=== PATIENT | male | born 1940 | race African-American/Black ===

== ENCOUNTER 2018-11-30 10:44 | Inpatient (IN) | payer OTHER ==
[~2018-11-30] VITALS: Ht 177.8 cm; Wt 81.6 kg
[2018-11-30] MEDS ORDERED: predniSONE 10 MG TABLET PO ONE (11:00)
[2018-11-30] MEDS ORDERED: IPRATRPIUM/ALBUTEROL 0.5/2.5MG 3 ML NEBU. NEB ONE (11:00)
--- NOTE | 2018-11-30 11:21 | RAD ---
EXAM: CHEST 1 VIEW History: Cough COMPARISON: 03/10/2015 TECHNIQUE: Single portable radiograph of the chest FINDINGS: The cardiac silhouette is unremarkable. Focus of airspace opacity right lower lobe of the lung likely pneumonia or atelectasis or neoplasm IMPRESSION: 1. Focus of airspace opacity identified in the right lower lobe lung likely pneumonia or atelectasis or neoplasm. Close interval follow-up examination is recommended to document resolution. Electronically signed by: Jordy Mcdonald MD (11/30/2018 11:18 AM) [place] [id number]
--- NOTE | 2018-11-30 12:37 | PHYS DOC ---
Past Medical History Past Medical History: CAD Past Surgical History: Other Additional Past Surgical Histo: heart cath with no stents Alcohol Use: None Drug Use: None Adult General Chief Complaint Chief Complaint: SHORTNESS OF BREATH HPI HPI Patient is a 78 year old M who presents for cough and sob. Has been sick for a few days. Endorses fevers. Endorses sputum production. Denies history of COPD but he is an everyday smoker. He does not have a primary doctor. Denies leg swelling. Review of Systems Review of Systems Constitutional: Denies fever or chills [] Eyes: Denies change in visual acuity, redness, or eye pain [] HENT: Denies nasal congestion or sore throat [] Respiratory: Denies cough or shortness of breath [] Cardiovascular: No additional information not addressed in HPI [] GI: Denies abdominal pain, nausea, vomiting, bloody stools or diarrhea [] : Denies dysuria or hematuria [] Musculoskeletal: Denies back pain or joint pain [] Integument: Denies rash or skin lesions [] Neurologic: Denies headache, focal weakness or sensory changes [] Endocrine: Denies polyuria or polydipsia [] All other systems were reviewed and found to be within normal limits, except as documented in this note. Current Medications Current Medications Current Medications Medications (Trade) Dose Ordered Sig/Robert Start Time Stop Time Status Last Admin Dose Admin Albuterol/ Ipratropium (Duoneb) 3 ml 1X ONCE 11/30/18 11:00 11/30/18 11:02 DC 11/30/18 11:10 3 ML Levofloxacin/ Dextrose 150 ml @ 100 mls/hr 1X ONCE 11/30/18 12:15 11/30/18 13:44 Prednisone (Prednisone) 50 mg 1X ONCE 11/30/18 11:00 11/30/18 11:02 DC 11/30/18 11:00 50 MG Allergies Allergies Allergies Coded Allergies Type Severity Reaction Last Updated Verified No Known Drug Allergies 03/10/15 No Physical Exam Physical Exam Constitutional: Well developed, well nourished, no acute distress, non-toxic appearance. [] HENT: Normocephalic, atraumatic, bilateral external ears normal, oropharynx moist, no oral exudates, nose normal. [] Eyes: PERRLA, EOMI, conjunctiva normal, no discharge. [] Neck: Normal range of motion, no tenderness, supple, no stridor. [] Cardiovascular:Heart rate regular rhythm, no murmur [] Lungs & Thorax: Bilateral breath sounds clear to auscultation [] Abdomen: Bowel sounds normal, soft, no tenderness, no masses, no pulsatile masses. [] Skin: Warm, dry, no erythema, no rash. [] Back: No tenderness, no CVA tenderness. [] Extremities: No tenderness, no cyanosis, no clubbing, ROM intact, no edema. [] Neurologic: Alert and oriented X 3, normal motor function, normal sensory function, no focal deficits noted. [] Psychologic: Affect normal, judgement normal, mood normal. [] Current Patient Data Vital Signs Vital Signs Date Time Temp Pulse Resp B/P (MAP) Pulse Ox O2 Delivery O2 Flow Rate FiO2 11/30/18 11:24 64 20 144/77 (99) 99 Room Air 11/30/18 11:00 98.0 98.0 EKG EKG [] Radiology/Procedures Radiology/Procedures [] Course & Med Decision Making Course & Med Decision Making Pertinent Labs and Imaging studies reviewed. (See chart for details) [] Dragon Disclaimer Dragon Disclaimer This electronic medical record was generated, in whole or in part, using a voice recognition dictation system. Departure Departure Referrals: JJ MEHTA MD (PCP) FAWN LUGO MD November 30, 2018 12:37
[2018-11-30 13:04] LABS: BASO % 1 % (0-3); EOS # 0.1 x10^3/uL (0.0-0.7); EOS % 4 % (0-3); HEMATOCRIT 44.7 % (39.0-53.0); HEMOGLOBIN 14.1 g/dL (13.0-17.5); LYMPH # 1.4 x10^3/uL (1.0-4.8); LYMPH % 33 % (24-48); MEAN CORPUSCULAR HEMOGLOBIN 23 pg (25-35); MEAN CORPUSCULAR HGB CONC 32 g/dL (31-37); MEAN CORPUSCULAR VOLUME 74 fL (79-100); MONO # 0.5 x10^3/uL (0.0-1.1); MONO % 13 % (0-9); NEUT # 2.1 x10^3uL (1.8-7.7); NEUT % 50 % (31-73); PLATELET COUNT 173 x10^3/uL (140-400); RED BLOOD COUNT 6.05 x10^6/uL (4.30-5.70); RED CELL DISTRIBUTION WIDTH 15.4 % (11.5-14.5); WHITE BLOOD COUNT 4.2 x10^3/uL (4.0-11.0)
[2018-11-30 13:08] LABS: CALCIUM 9.1 mg/dL (8.5-10.1); CREATININE 1.3 mg/dL (0.7-1.3); GFR 64.4; POTASSIUM 3.7 mmol/L (3.5-5.1)
[2018-11-30 13:14] LABS: ALBUMIN 3.1 g/dL (3.4-5.0); ALBUMIN/GLOBULIN RATIO 0.7 (1.0-1.7); TOTAL BILIRUBIN 0.4 mg/dL (0.2-1.0); TOTAL PROTEIN 7.7 g/dL (6.4-8.2)
[2018-11-30 16:30] VITALS: BP 132/84
--- NOTE | 2018-11-30 16:30 | NUR ---
The patient, JUN CASE, 78 y/o, M admitted by BRANDY MANN MD, was given written information regarding hospital policies, unit procedures and contact persons. Valuables were checked and pt only has cell phone, clothes, no dentures, no hearing aids, no glasses. pt somewhat short of breath upon admission. Sats WNL on RA. oriented to room and call light. meal tray ordered. Dr. Mann in to see pt. will monitor this patient.
[2018-11-30] MEDS ORDERED: NICOTINE POLACRILEX 2MG GUM PACKAGE of 12. BC PRN (16:45)
[2018-11-30] MEDS ORDERED: DEXTROSE 50% 25 GM / 50ML DISP.SYRIN. IV PRN (16:45)
[2018-11-30] MEDS ORDERED: NICOTINE 14MG PATCH. TD PRN (16:45)
--- NOTE | 2018-11-30 16:45 | PDOC1 ---
History and Physical Date of Admission Date of Admission DATE: 11/30/18 TIME: 16:38 Source Source: Chart review, Patient History of Present Illness History of Present Illness ninoska Rai is a 78 year old M who presents for acute dyspnea with cough and sob. 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 larkin for htn, dm2, BPH Past Medical History Cardiovascular: HTN Endocrine: Diabetes Past Surgical History Past Surgical History: No pertinent history Family History Family History: Heart Disease Social History Smoke: <1 pack per day Current Medications Current Medications Current Medications Albuterol/ Ipratropium (Duoneb) 3 ml 1X ONCE NEB Last administered on 11/30/18at 11:10; Start 11/30/18 at 11:00; Stop 11/30/18 at 11:02; Status DC Prednisone (Prednisone) 50 mg 1X ONCE PO Last administered on 11/30/18at 11:00; Start 11/30/18 at 11:00; Stop 11/30/18 at 11:02; Status DC Levofloxacin/ Dextrose 150 ml @ 100 mls/hr 1X ONCE IV Last administered on 11/30/18at 12:34; Start 11/30/18 at 12:15; Stop 11/30/18 at 13:44; Status DC Albuterol/ Ipratropium (Duoneb) 3 ml RTQID NEB ; Start 11/30/18 at 17:00 Budesonide (Pulmicort) 0.5 mg RTBID NEB ; Start 11/30/18 at 20:00 Levofloxacin (Levaquin) 750 mg DAILY06 PO ; Start 12/01/18 at 06:00 Allergies Allergies: Coded Allergies: No Known Drug Allergies (Unverified , 03/10/15) ROS General: YES: Chills, Fatigue, Malaise; No: Night Sweats, Appetite, Other PSYCHOLOGICAL ROS: No: Anxiety, Behavioral Disorder, Concentration difficultie, Decreased libido, Depression, Disorientation, Hallucinations, Hostility, Irr itablity, Memory difficulties, Mood Swings, Obsessive thoughts, Physical abuse, Sexual abuse, Sleep disturbances, Suicidal ideation, Other Eyes: No Blurry vision, No Decreased vision, No Double vision, No Dry eyes, No Excessive tearing, No Eye Pain, No Itchy Eyes, No Loss of vision, No Photophobia, No Scotomata, No Uses contacts, No Uses glasses, No Other HEENT: No: Heacaches, Visual Changes, Hearing change, Nasal congestion, Nasal discharge, Oral lesions, Sinus pain, Sore Throat, Epistaxis, Sneezing, Snoring, Tinnitus, Vertigo, Vocal changes, Other Respiratory: YES: Cough, Shortness of breath, SOB with excertion, Sputum Changes Cardiovascular: No Chest Pain, No Palpitations, No Orthopnea, No Paroxysmal Noc. Dyspnea, No Edema, No Lt Headedness, No Other Gastrointestinal: No Nausea, No Vomiting, No Abdominal Pain, No Diarrhea, No Constipation, No Melena, No Hematochezia, No Other Genitourinary: No Dysuria, No Frequency, No Incontinence, No Hematuria, No Retention, No Discharge, No Urgency, No Pain, No Flank Pain, No Other, No , No , No , No , No , No , No Musculoskeletal: No Gait Disturbance, No Joint Pain, No Joint Stiffness, No Joint Swelling, No Muscle Pain, No Muscular Weakness, No Pain In:, No Swelling In:, No Other Neurological: No Behavorial Changes, No Bowel/Bladder ControlChng, No Confusion, No Dizziness, No Gait Disturbance, No Headaches, No Impaired Coord/balance, No Memory Loss, No Numbness/Tingling, No Seizures, No Speech Problems, No Tremors, No Visual Changes, No Weakness, No Other Skin: Yes Dry Skin; No Eczema, No Hair Changes, No Lumps, No Mole Changes, No Mottling, No Nail Changes, No Pruritus, No Rash, No Skin Lesion Changes, No Other, No Acne Physical Exam General: Alert, Oriented X3, mild distress HEENT: PERRLA, EOMI Lungs: Clear to auscultation, Normal air movement Heart: S1S2, no gallops, no murmurs Abdomen: Normal bowel sounds, Soft Rectal Exam: not examined Extremities: No cyanosis, Normal pulses Skin: No rashes, No breakdown, No significant lesion Neuro: Normal speech, Normal tone, Sensation intact Psych/Mental Status: Mood NL Vitals Vitals Vital Signs Date Time Temp Pulse Resp B/P (MAP) Pulse Ox O2 Delivery O2 Flow Rate FiO2 11/30/18 15:30 64 20 151/86 (107) 95 Room Air 11/30/18 11:00 98.0 98.0 Labs Labs Laboratory Tests Test 11/30/18 12:31 White Blood Count 4.2 x10^3/uL (4.0-11.0) Red Blood Count 6.05 x10^6/uL (4.30-5.70) Hemoglobin 14.1 g/dL (13.0-17.5) Hematocrit 44.7 % (39.0-53.0) Mean Corpuscular Volume 74 fL (79-100) Mean Corpuscular Hemoglobin 23 pg (25-35) Mean Corpuscular Hemoglobin Concent 32 g/dL (31-37) Red Cell Distribution Width 15.4 % (11.5-14.5) Platelet Count 173 x10^3/uL (140-400) Neutrophils (%) (Auto) 50 % (31-73) Lymphocytes (%) (Auto) 33 % (24-48) Monocytes (%) (Auto) 13 % (0-9) Eosinophils (%) (Auto) 4 % (0-3) Basophils (%) (Auto) 1 % (0-3) Neutrophils # (Auto) 2.1 x10^3uL (1.8-7.7) Lymphocytes # (Auto) 1.4 x10^3/uL (1.0-4.8) Monocytes # (Auto) 0.5 x10^3/uL (0.0-1.1) Eosinophils # (Auto) 0.1 x10^3/uL (0.0-0.7) Basophils # (Auto) 0.0 x10^3/uL (0.0-0.2) Sodium Level 141 mmol/L (136-145) Potassium Level 3.7 mmol/L (3.5-5.1) Chloride Level 104 mmol/L (98-107) Carbon Dioxide Level 26 mmol/L (21-32) Anion Gap 11 (6-14) Blood Urea Nitrogen 11 mg/dL (8-26) Creatinine 1.3 mg/dL (0.7-1.3) Estimated GFR (Cockcroft-Gault) 64.4 BUN/Creatinine Ratio 8 (6-20) Glucose Level 91 mg/dL (70-99) Lactic Acid Level 1.3 mmol/L (0.4-2.0) Calcium Level 9.1 mg/dL (8.5-10.1) Total Bilirubin 0.4 mg/dL (0.2-1.0) Aspartate Amino Transf (AST/SGOT) 17 U/L (15-37) Alanine Aminotransferase (ALT/SGPT) 12 U/L (16-63) Alkaline Phosphatase 72 U/L (46-116) Troponin I Quantitative < 0.017 ng/mL (0.000-0.055) WR-Ekp-A-Type Natriuretic Peptide 449 pg/mL (0-449) Total Protein 7.7 g/dL (6.4-8.2) Albumin 3.1 g/dL (3.4-5.0) Albumin/Globulin Ratio 0.7 (1.0-1.7) Laboratory Tests Test 11/30/18 12:31 White Blood Count 4.2 x10^3/uL (4.0-11.0) Red Blood Count 6.05 x10^6/uL (4.30-5.70) Hemoglobin 14.1 g/dL (13.0-17.5) Hematocrit 44.7 % (39.0-53.0) Mean Corpuscular Volume 74 fL (79-100) Mean Corpuscular Hemoglobin 23 pg (25-35) Mean Corpuscular Hemoglobin Concent 32 g/dL (31-37) Red Cell Distribution Width 15.4 % (11.5-14.5) Platelet Count 173 x10^3/uL (140-400) Neutrophils (%) (Auto) 50 % (31-73) Lymphocytes (%) (Auto) 33 % (24-48) Monocytes (%) (Auto) 13 % (0-9) Eosinophils (%) (Auto) 4 % (0-3) Basophils (%) (Auto) 1 % (0-3) Neutrophils # (Auto) 2.1 x10^3uL (1.8-7.7) Lymphocytes # (Auto) 1.4 x10^3/uL (1.0-4.8) Monocytes # (Auto) 0.5 x10^3/uL (0.0-1.1) Eosinophils # (Auto) 0.1 x10^3/uL (0.0-0.7) Basophils # (Auto) 0.0 x10^3/uL (0.0-0.2) Sodium Level 141 mmol/L (136-145) Potassium Level 3.7 mmol/L (3.5-5.1) Chloride Level 104 mmol/L (98-107) Carbon Dioxide Level 26 mmol/L (21-32) Anion Gap 11 (6-14) Blood Urea Nitrogen 11 mg/dL (8-26) Creatinine 1.3 mg/dL (0.7-1.3) Estimated GFR (Cockcroft-Gault) 64.4 BUN/Creatinine Ratio 8 (6-20) Glucose Level 91 mg/dL (70-99) Lactic Acid Level 1.3 mmol/L (0.4-2.0) Calcium Level 9.1 mg/dL (8.5-10.1) Total Bilirubin 0.4 mg/dL (0.2-1.0) Aspartate Amino Transf (AST/SGOT) 17 U/L (15-37) Alanine Aminotransferase (ALT/SGPT) 12 U/L (16-63) Alkaline Phosphatase 72 U/L (46-116) Troponin I Quantitative < 0.017 ng/mL (0.000-0.055) LK-Hnb-O-Type Natriuretic Peptide 449 pg/mL (0-449) Total Protein 7.7 g/dL (6.4-8.2) Albumin 3.1 g/dL (3.4-5.0) Albumin/Globulin Ratio 0.7 (1.0-1.7) VTE Prophylaxis Ordered VTE Prophylaxis Devices: No VTE Pharmacological Prophylaxi: Yes Assessment/Plan Assessment/Plan pneumonia w. sepsis cough dyspnea hazy opacity to upper lobe, consult Pulm, may need hi res CT, will follow BPH, check post-void, should follow with uro outpatient, will refer BRANDY MANN MD November 30, 2018 16:45
[2018-11-30] MEDS: INSULIN LISPRO 300 UNITS/3 ML INSULN.PEN. SQ SCH (17:00)
[2018-11-30] MEDS: IPRATRPIUM/ALBUTEROL 0.5/2.5MG 3 ML NEBU. NEB SCH ×2 (17:00→18:08)
[2018-11-30] MEDS: amLODIPine BESYLATE 5 MG TABLET PO SCH (17:42)
[2018-11-30] MEDS: BUDESONIDE 0.5 MG/2 ML NEBU. NEB SCH (18:08)
[2018-11-30 19:00] VITALS: BP 100/62
[2018-11-30] MEDS: ENOXAPARIN 40 MG/0.4 ML SYRINGE. SQ SCH (20:28)
[2018-11-30 23:00] VITALS: BP 103/58
[2018-12-01 03:00] VITALS: BP 129/74
[2018-12-01 04:27] LABS: BASO % 0 % (0-3); EOS % 0 % (0-3); HEMATOCRIT 40.1 % (39.0-53.0); HEMOGLOBIN 12.5 g/dL (13.0-17.5); LYMPH # 1.1 x10^3/uL (1.0-4.8); LYMPH % 17 % (24-48); MEAN CORPUSCULAR HEMOGLOBIN 23 pg (25-35); MEAN CORPUSCULAR HGB CONC 31 g/dL (31-37); MEAN CORPUSCULAR VOLUME 74 fL (79-100); MONO # 0.6 x10^3/uL (0.0-1.1); MONO % 10 % (0-9); NEUT # 4.7 x10^3uL (1.8-7.7); NEUT % 73 % (31-73); PLATELET COUNT 151 x10^3/uL (140-400); RED BLOOD COUNT 5.43 x10^6/uL (4.30-5.70); RED CELL DISTRIBUTION WIDTH 15.3 % (11.5-14.5); WHITE BLOOD COUNT 6.4 x10^3/uL (4.0-11.0)
[2018-12-01 04:49] LABS: ALBUMIN 2.7 g/dL (3.4-5.0); ALBUMIN/GLOBULIN RATIO 0.7 (1.0-1.7); CREATININE 1.6 mg/dL (0.7-1.3); GFR 50.7; TOTAL BILIRUBIN 0.3 mg/dL (0.2-1.0); TOTAL PROTEIN 6.7 g/dL (6.4-8.2)
[2018-12-01 06:05] LABS: PLT ESTIMATE ADEQUATE (ADEQUATE)
[2018-12-01 06:06] LABS: MICROCYTOSIS SLIGHT
[2018-12-01 07:00] VITALS: BP 136/81
[2018-12-01] MEDS: IPRATRPIUM/ALBUTEROL 0.5/2.5MG 3 ML NEBU. NEB SCH ×4 (07:38→19:51)
[2018-12-01] MEDS: BUDESONIDE 0.5 MG/2 ML NEBU. NEB SCH ×2 (07:38→19:51)
[2018-12-01] MEDS: INSULIN LISPRO 300 UNITS/3 ML INSULN.PEN. SQ SCH ×3 (08:00→17:00)
--- NOTE | 2018-12-01 08:52 | PDOC ---
PROGRESS NOTES Chief Complaint Chief Complaint pneumonia w. sepsis cough dyspnea hazy opacity to upper lobe, consult Pulm, may need hi res CT, will follow BPH, check post-void, should follow with uro outpatient, will refer History of Present Illness History of Present Illness Mr. Calderon is a 78 year old M w/ PMHx HTN, DM2, BPH who presents for acute dyspnea with cough and sob. he has not felt well for days, fever, chills, weakness and cough - found with pneumonia on CXR, admitted for further care He still has a pretty violent cough today, not particularly short of breath. Seen by pulm. Will get CT chest. Vitals Vitals Vital Signs Date Time Temp Pulse Resp B/P (MAP) Pulse Ox O2 Delivery O2 Flow Rate FiO2 12/01/18 07:38 99 Room Air 12/01/18 07:00 98.0 61 18 136/81 (99) 98.0 Physical Exam General: Alert, Oriented X3, mild distress Lungs: Wheezing Abdomen: Normal bowel sounds, Soft Extremities: No cyanosis, Normal pulses Skin: No rashes, No breakdown, No significant lesion Labs LABS Laboratory Tests Test 11/30/18 12:31 11/30/18 16:58 12/01/18 03:20 12/01/18 03:40 White Blood Count 4.2 x10^3/uL (4.0-11.0) 6.4 x10^3/uL (4.0-11.0) Red Blood Count 6.05 x10^6/uL (4.30-5.70) 5.43 x10^6/uL (4.30-5.70) Hemoglobin 14.1 g/dL (13.0-17.5) 12.5 g/dL (13.0-17.5) Hematocrit 44.7 % (39.0-53.0) 40.1 % (39.0-53.0) Mean Corpuscular Volume 74 fL (79-100) 74 fL (79-100) Mean Corpuscular Hemoglobin 23 pg (25-35) 23 pg (25-35) Mean Corpuscular Hemoglobin Concent 32 g/dL (31-37) 31 g/dL (31-37) Red Cell Distribution Width 15.4 % (11.5-14.5) 15.3 % (11.5-14.5) Platelet Count 173 x10^3/uL (140-400) 151 x10^3/uL (140-400) Neutrophils (%) (Auto) 50 % (31-73) 73 % (31-73) Lymphocytes (%) (Auto) 33 % (24-48) 17 % (24-48) Monocytes (%) (Auto) 13 % (0-9) 10 % (0-9) Eosinophils (%) (Auto) 4 % (0-3) 0 % (0-3) Basophils (%) (Auto) 1 % (0-3) 0 % (0-3) Neutrophils # (Auto) 2.1 x10^3uL (1.8-7.7) 4.7 x10^3uL (1.8-7.7) Lymphocytes # (Auto) 1.4 x10^3/uL (1.0-4.8) 1.1 x10^3/uL (1.0-4.8) Monocytes # (Auto) 0.5 x10^3/uL (0.0-1.1) 0.6 x10^3/uL (0.0-1.1) Eosinophils # (Auto) 0.1 x10^3/uL (0.0-0.7) 0.0 x10^3/uL (0.0-0.7) Basophils # (Auto) 0.0 x10^3/uL (0.0-0.2) 0.0 x10^3/uL (0.0-0.2) Sodium Level 141 mmol/L (136-145) 139 mmol/L (136-145) Potassium Level 3.7 mmol/L (3.5-5.1) 4.0 mmol/L (3.5-5.1) Chloride Level 104 mmol/L (98-107) 104 mmol/L (98-107) Carbon Dioxide Level 26 mmol/L (21-32) 22 mmol/L (21-32) Anion Gap 11 (6-14) 13 (6-14) Blood Urea Nitrogen 11 mg/dL (8-26) 19 mg/dL (8-26) Creatinine 1.3 mg/dL (0.7-1.3) 1.6 mg/dL (0.7-1.3) Estimated GFR (Cockcroft-Gault) 64.4 50.7 BUN/Creatinine Ratio 8 (6-20) 12 (6-20) Glucose Level 91 mg/dL (70-99) 140 mg/dL (70-99) Lactic Acid Level 1.3 mmol/L (0.4-2.0) Calcium Level 9.1 mg/dL (8.5-10.1) 9.0 mg/dL (8.5-10.1) Total Bilirubin 0.4 mg/dL (0.2-1.0) 0.3 mg/dL (0.2-1.0) Aspartate Amino Transf (AST/SGOT) 17 U/L (15-37) 14 U/L (15-37) Alanine Aminotransferase (ALT/SGPT) 12 U/L (16-63) 9 U/L (16-63) Alkaline Phosphatase 72 U/L (46-116) 60 U/L (46-116) Troponin I Quantitative < 0.017 ng/mL (0.000-0.055) II-Orw-W-Type Natriuretic Peptide 449 pg/mL (0-449) Total Protein 7.7 g/dL (6.4-8.2) 6.7 g/dL (6.4-8.2) Albumin 3.1 g/dL (3.4-5.0) 2.7 g/dL (3.4-5.0) Albumin/Globulin Ratio 0.7 (1.0-1.7) 0.7 (1.0-1.7) Glucose (Fingerstick) 145 mg/dL (70-99) Iron Level 53 ug/dL (65-175) Total Iron Binding Capacity 204 ug/dL (250-450) Iron Saturation 26 % (15-34) Platelet Estimate Adequate (ADEQUATE) Large Platelets Occ Microcytosis Slight Test 12/01/18 08:39 Glucose (Fingerstick) 108 mg/dL (70-99) Assessment and Plan Assessmemt and Plan Problems Medical Problems: (1) Pneumonia Status: Acute Comment Review of Relevant I have reviewed the following items ara (where applicable) has been applied. Labs Laboratory Tests Test 11/30/18 12:31 11/30/18 16:58 12/01/18 03:20 12/01/18 03:40 White Blood Count 4.2 x10^3/uL (4.0-11.0) 6.4 x10^3/uL (4.0-11.0) Red Blood Count 6.05 x10^6/uL (4.30-5.70) 5.43 x10^6/uL (4.30-5.70) Hemoglobin 14.1 g/dL (13.0-17.5) 12.5 g/dL (13.0-17.5) Hematocrit 44.7 % (39.0-53.0) 40.1 % (39.0-53.0) Mean Corpuscular Volume 74 fL (79-100) 74 fL (79-100) Mean Corpuscular Hemoglobin 23 pg (25-35) 23 pg (25-35) Mean Corpuscular Hemoglobin Concent 32 g/dL (31-37) 31 g/dL (31-37) Red Cell Distribution Width 15.4 % (11.5-14.5) 15.3 % (11.5-14.5) Platelet Count 173 x10^3/uL (140-400) 151 x10^3/uL (140-400) Neutrophils (%) (Auto) 50 % (31-73) 73 % (31-73) Lymphocytes (%) (Auto) 33 % (24-48) 17 % (24-48) Monocytes (%) (Auto) 13 % (0-9) 10 % (0-9) Eosinophils (%) (Auto) 4 % (0-3) 0 % (0-3) Basophils (%) (Auto) 1 % (0-3) 0 % (0-3) Neutrophils # (Auto) 2.1 x10^3uL (1.8-7.7) 4.7 x10^3uL (1.8-7.7) Lymphocytes # (Auto) 1.4 x10^3/uL (1.0-4.8) 1.1 x10^3/uL (1.0-4.8) Monocytes # (Auto) 0.5 x10^3/uL (0.0-1.1) 0.6 x10^3/uL (0.0-1.1) Eosinophils # (Auto) 0.1 x10^3/uL (0.0-0.7) 0.0 x10^3/uL (0.0-0.7) Basophils # (Auto) 0.0 x10^3/uL (0.0-0.2) 0.0 x10^3/uL (0.0-0.2) Sodium Level 141 mmol/L (136-145) 139 mmol/L (136-145) Potassium Level 3.7 mmol/L (3.5-5.1) 4.0 mmol/L (3.5-5.1) Chloride Level 104 mmol/L (98-107) 104 mmol/L (98-107) Carbon Dioxide Level 26 mmol/L (21-32) 22 mmol/L (21-32) Anion Gap 11 (6-14) 13 (6-14) Blood Urea Nitrogen 11 mg/dL (8-26) 19 mg/dL (8-26) Creatinine 1.3 mg/dL (0.7-1.3) 1.6 mg/dL (0.7-1.3) Estimated GFR (Cockcroft-Gault) 64.4 50.7 BUN/Creatinine Ratio 8 (6-20) 12 (6-20) Glucose Level 91 mg/dL (70-99) 140 mg/dL (70-99) Lactic Acid Level 1.3 mmol/L (0.4-2.0) Calcium Level 9.1 mg/dL (8.5-10.1) 9.0 mg/dL (8.5-10.1) Total Bilirubin 0.4 mg/dL (0.2-1.0) 0.3 mg/dL (0.2-1.0) Aspartate Amino Transf (AST/SGOT) 17 U/L (15-37) 14 U/L (15-37) Alanine Aminotransferase (ALT/SGPT) 12 U/L (16-63) 9 U/L (16-63) Alkaline Phosphatase 72 U/L (46-116) 60 U/L (46-116) Troponin I Quantitative < 0.017 ng/mL (0.000-0.055) QT-Rug-J-Type Natriuretic Peptide 449 pg/mL (0-449) Total Protein 7.7 g/dL (6.4-8.2) 6.7 g/dL (6.4-8.2) Albumin 3.1 g/dL (3.4-5.0) 2.7 g/dL (3.4-5.0) Albumin/Globulin Ratio 0.7 (1.0-1.7) 0.7 (1.0-1.7) Glucose (Fingerstick) 145 mg/dL (70-99) Iron Level 53 ug/dL (65-175) Total Iron Binding Capacity 204 ug/dL (250-450) Iron Saturation 26 % (15-34) Platelet Estimate Adequate (ADEQUATE) Large Platelets Occ Microcytosis Slight Test 12/01/18 08:39 Glucose (Fingerstick) 108 mg/dL (70-99) Laboratory Tests Test 11/30/18 12:31 11/30/18 16:58 12/01/18 03:20 12/01/18 03:40 White Blood Count 4.2 x10^3/uL (4.0-11.0) 6.4 x10^3/uL (4.0-11.0) Red Blood Count 6.05 x10^6/uL (4.30-5.70) 5.43 x10^6/uL (4.30-5.70) Hemoglobin 14.1 g/dL (13.0-17.5) 12.5 g/dL (13.0-17.5) Hematocrit 44.7 % (39.0-53.0) 40.1 % (39.0-53.0) Mean Corpuscular Volume 74 fL (79-100) 74 fL (79-100) Mean Corpuscular Hemoglobin 23 pg (25-35) 23 pg (25-35) Mean Corpuscular Hemoglobin Concent 32 g/dL (31-37) 31 g/dL (31-37) Red Cell Distribution Width 15.4 % (11.5-14.5) 15.3 % (11.5-14.5) Platelet Count 173 x10^3/uL (140-400) 151 x10^3/uL (140-400) Neutrophils (%) (Auto) 50 % (31-73) 73 % (31-73) Lymphocytes (%) (Auto) 33 % (24-48) 17 % (24-48) Monocytes (%) (Auto) 13 % (0-9) 10 % (0-9) Eosinophils (%) (Auto) 4 % (0-3) 0 % (0-3) Basophils (%) (Auto) 1 % (0-3) 0 % (0-3) Neutrophils # (Auto) 2.1 x10^3uL (1.8-7.7) 4.7 x10^3uL (1.8-7.7) Lymphocytes # (Auto) 1.4 x10^3/uL (1.0-4.8) 1.1 x10^3/uL (1.0-4.8) Monocytes # (Auto) 0.5 x10^3/uL (0.0-1.1) 0.6 x10^3/uL (0.0-1.1) Eosinophils # (Auto) 0.1 x10^3/uL (0.0-0.7) 0.0 x10^3/uL (0.0-0.7) Basophils # (Auto) 0.0 x10^3/uL (0.0-0.2) 0.0 x10^3/uL (0.0-0.2) Sodium Level 141 mmol/L (136-145) 139 mmol/L (136-145) Potassium Level 3.7 mmol/L (3.5-5.1) 4.0 mmol/L (3.5-5.1) Chloride Level 104 mmol/L (98-107) 104 mmol/L (98-107) Carbon Dioxide Level 26 mmol/L (21-32) 22 mmol/L (21-32) Anion Gap 11 (6-14) 13 (6-14) Blood Urea Nitrogen 11 mg/dL (8-26) 19 mg/dL (8-26) Creatinine 1.3 mg/dL (0.7-1.3) 1.6 mg/dL (0.7-1.3) Estimated GFR (Cockcroft-Gault) 64.4 50.7 BUN/Creatinine Ratio 8 (6-20) 12 (6-20) Glucose Level 91 mg/dL (70-99) 140 mg/dL (70-99) Lactic Acid Level 1.3 mmol/L (0.4-2.0) Calcium Level 9.1 mg/dL (8.5-10.1) 9.0 mg/dL (8.5-10.1) Total Bilirubin 0.4 mg/dL (0.2-1.0) 0.3 mg/dL (0.2-1.0) Aspartate Amino Transf (AST/SGOT) 17 U/L (15-37) 14 U/L (15-37) Alanine Aminotransferase (ALT/SGPT) 12 U/L (16-63) 9 U/L (16-63) Alkaline Phosphatase 72 U/L (46-116) 60 U/L (46-116) Troponin I Quantitative < 0.017 ng/mL (0.000-0.055) BM-Adc-J-Type Natriuretic Peptide 449 pg/mL (0-449) Total Protein 7.7 g/dL (6.4-8.2) 6.7 g/dL (6.4-8.2) Albumin 3.1 g/dL (3.4-5.0) 2.7 g/dL (3.4-5.0) Albumin/Globulin Ratio 0.7 (1.0-1.7) 0.7 (1.0-1.7) Glucose (Fingerstick) 145 mg/dL (70-99) Iron Level 53 ug/dL (65-175) Total Iron Binding Capacity 204 ug/dL (250-450) Iron Saturation 26 % (15-34) Platelet Estimate Adequate (ADEQUATE) Large Platelets Occ Microcytosis Slight Test 12/01/18 08:39 Glucose (Fingerstick) 108 mg/dL (70-99) Medications Current Medications Albuterol/ Ipratropium (Duoneb) 3 ml 1X ONCE NEB Last administered on 11/30/18at 11:10; Start 11/30/18 at 11:00; Stop 11/30/18 at 11:02; Status DC Prednisone (Prednisone) 50 mg 1X ONCE PO Last administered on 11/30/18at 11:00; Start 11/30/18 at 11:00; Stop 11/30/18 at 11:02; Status DC Levofloxacin/ Dextrose 150 ml @ 100 mls/hr 1X ONCE IV Last administered on 11/30/18at 12:34; Start 11/30/18 at 12:15; Stop 11/30/18 at 13:44; Status DC Albuterol/ Ipratropium (Duoneb) 3 ml RTQID NEB Last administered on 12/01/18at 07:38; Start 11/30/18 at 17:00 Budesonide (Pulmicort) 0.5 mg RTBID NEB Last administered on 12/01/18at 07:38; Start 11/30/18 at 20:00 Levofloxacin (Levaquin) 750 mg DAILY06 PO Last administered on 12/01/18at 05:08; Start 12/01/18 at 06:00 Nicotine (Nicoderm Cq 14mg) 1 patch PRN DAILY PRN TD SMOKING CESSATION; Start 11/30/18 at 16:45 Nicotine Polacrilex (Nicorette Gum) 1 each PRN Q1HR PRN BC SMOKING CESSATION; Start 11/30/18 at 16:45 Insulin Human Lispro (HumaLOG) 0-7 UNITS TIDWMEALS SQ ; Start 11/30/18 at 17:00 Dextrose (Dextrose 50%-Water Syringe) 12.5 gm PRN Q15MIN PRN IV SEE COMMENTS; Start 11/30/18 at 16:45 Amlodipine Besylate (Norvasc) 2.5 mg DAILY PO Last administered on 11/30/18at 17:42; Start 11/30/18 at 17:30 Enoxaparin Sodium (Lovenox Per Pharmacy Prophylaxis Dosing) 1 each PRN DAILY PRN MC SEE COMMENTS; Start 11/30/18 at 16:45 Enoxaparin Sodium (Lovenox 40mg Syringe) 40 mg Q24H SQ Last administered on 11/30/18at 20:28; Start 11/30/18 at 21:00 Vitals/I & O Vital Sign - Last 24 Hours 11/30/18 11/30/18 11/30/18 11/30/18 11:00 11:12 11:24 12:00 Temp 98.0 98.0 Pulse 76 64 62 Resp 20 20 20 B/P (MAP) 154/89 (110) 144/77 (99) 127/73 (91) Pulse Ox 98 95 99 99 O2 Delivery Room Air Room Air Room Air Room Air 11/30/18 11/30/18 11/30/18 11/30/18 12:30 13:00 13:30 14:00 Pulse 66 62 72 66 Resp 20 20 20 20 B/P (MAP) 123/77 (92) 150/92 (111) 151/87 (108) 164/79 (107) Pulse Ox 99 95 95 95 O2 Delivery Room Air Room Air Room Air Room Air 11/30/18 11/30/18 11/30/18 11/30/18 14:30 15:00 15:30 16:30 Temp 98.2 98.2 Pulse 60 56 64 69 Resp 20 20 20 18 B/P (MAP) 146/78 (100) 151/86 (107) 151/86 (107) 132/84 (100) Pulse Ox 99 95 95 97 O2 Delivery Room Air Room Air Room Air Room Air 11/30/18 11/30/18 11/30/18 11/30/18 17:42 18:10 18:58 19:00 Temp 98.5 98.5 Pulse 69 85 Resp 20 B/P (MAP) 132/84 100/62 (75) Pulse Ox 95 96 O2 Delivery Room Air Room Air Room Air 11/30/18 11/30/18 12/01/18 12/01/18 20:00 23:00 03:00 07:00 Temp 98.8 98.8 98.0 98.8 98.8 98.0 Pulse 74 70 61 Resp 18 20 18 B/P (MAP) 103/58 (73) 129/74 (92) 136/81 (99) Pulse Ox 97 97 97 O2 Delivery Room Air Room Air Room Air Room Air 12/01/18 12/01/18 07:00 07:38 Temp 98.0 98.0 Pulse 61 Resp 18 B/P (MAP) 136/81 (99) Pulse Ox 97 99 O2 Delivery Room Air Room Air Intake and Output 11/30/18 11/30/18 12/01/18 14:59 22:59 06:59 Intake Total 150 ml 450 ml 0 ml Balance 150 ml 450 ml 0 ml BURKE PIERRE MD December 01, 2018 08:52
[2018-12-01] MEDS: amLODIPine BESYLATE 5 MG TABLET PO SCH (08:54)
--- NOTE | 2018-12-01 10:08 | NUR ---
SW following pt for anticipated dc needs. Chart reviewed and DW RN. Pt lives at home alone and no dc recommendations/SW needs noted at this time.
--- NOTE | 2018-12-01 10:17 | CONS ---
DATE OF CONSULTATION: ATTENDING PHYSICIAN: Dr. Haley. REASON FOR CONSULTATION: Dyspnea. HISTORY OF PRESENT ILLNESS: The patient is a 78-year-old male who has a history of tobacco use for 15-20 years. He no longer smokes cigarettes. He presented to the hospital with increasing cough for 1 week with some light yellow sputum production and some subjective fever. No headaches, no nausea, vomiting, no diarrhea. No chest pain. No focal weakness. The patient was seen in the Emergency Room here where a chest x-ray was performed, which was reviewed by me and shows a hazy infiltrate in the right lower lobe. He denies any weight loss. I have been asked to see him for further evaluation. PAST MEDICAL HISTORY: Significant for hypertension, diabetes. PAST SURGICAL HISTORY: No recent surgery. ALLERGIES: None. CURRENT MEDICATIONS: Reviewed as listed in the MRAD including antibiotic Levaquin. He is on bronchodilators, Pulmicort, DuoNebs and Lovenox for DVT prophylaxis. REVIEW OF SYSTEMS: A 12-point review of system obtained. Pertinent positives discussed in my history of present illness, otherwise noncontributory. All systems that were negative were reviewed as well. SOCIAL HISTORY: Smoked for about 15-20 years. FAMILY HISTORY: Noncontributory to lungs. MEDICATIONS: All reviewed as listed in the MRAD. PHYSICAL EXAMINATION: VITAL SIGNS: Reviewed. Blood pressure is stable. He is afebrile, his pulse ox is 95-96% room air. HEENT: Sclerae nonicteric. NECK: Supple. LUNGS: Diffuse expiratory wheezes. CARDIOVASCULAR: Regular rate and rhythm. ABDOMEN: Soft, nontender. EXTREMITIES: With no pitting edema. LABORATORY DATA: Reviewed. White cell count 6.4, hemoglobin 12.5 and platelets are 151. BUN and creatinine 19 and 1.6. IMPRESSION: 1. Acute exacerbation of chronic obstructive pulmonary disease, triggered by acute pneumonia, likely bacterial. 2. Abnormal chest x-ray with faint opacity in the right lower lobe, likely related to right lower lobe pneumonia. However, we will obtain noncontrast CT chest for further evaluation. 3. Moderate protein-calorie malnutrition. 4. Mild renal insufficiency. RECOMMENDATIONS: 1. The patient is diffusely wheezing. At this time, I will add IV steroids. I will continue with Pulmicort nebulizer along with DuoNebs. 2. Continue antibiotics. 3. Obtain noncontrast CT chest to rule out any small mass. 4. Lovenox for DVT prophylaxis. 5. Discussed with RN. We will follow along with you. EDNA LEOS MD DR: MICHELLE/carlos JOB#: [id number] / [id number]
[2018-12-01 10:23] LABS: HEMOGLOBIN A1C 6.3 % (4.8-5.6)
[2018-12-01 11:00] VITALS: BP 120/67
--- NOTE | 2018-12-01 13:05 | RAD ---
CT of the chest without contrast, 12/01/2018: HISTORY: Right lower lobe mass versus pneumonia Noncontrast scans were obtained as requested. There is mild calcific plaquing of the thoracic aorta without evidence of aneurysm. There are mild scattered coronary artery calcifications. The heart is not enlarged. There are calcified right hilar and mediastinal lymph nodes compatible with old granulomatous disease. The left lobe of the thyroid gland is larger than the right. The right middle lobe is atelectatic. There is narrowing of the proximal right middle lobe bronchus as best seen on coronal image 32 of series #5. There is an adjacent small area of decreased density which may represent a small amount of fluid trapped in a fissure. No definite underlying hilar mass is seen, although the margin of the right hilum is partial obscured by the adjacent atelectasis and not optimally defined on these noncontrast scans. There is a calcified granuloma anteroinferiorly in the right upper lobe. There are minimal linear opacities in the lung bases, left greater the right, compatible with scarring and/or atelectasis. No significant free pleural fluid is evident. IMPRESSION: 1. Right middle lobe atelectasis with narrowing of the proximal right middle lobe bronchus. Bronchoscopic evaluation should be considered for further evaluation. 2. 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 Minimal linear scarring and/or atelectasis in the lung bases. PQRS Compliance Statement: One or more of the following individualized dose reduction techniques were utilized for this examination: 1. Automated exposure control 2. Adjustment of the mA and/or kV according to patient size 3. Use of iterative reconstruction technique Electronically signed by: Otto Castrejon MD (12/01/2018 1:02 PM) [facility]
[2018-12-01] MEDS: methylPREDNISolone SOD SUCC PF 125 MG/2 ML VIAL. IV SCH ×2 (14:45→22:26)
[2018-12-01 15:00] VITALS: BP 134/66
[2018-12-01 19:00] VITALS: BP 134/73
[2018-12-01] MEDS: LACTOBACILLUS RHAMNOSUS GG 1 CAPSULE. PO SCH (22:26)
[2018-12-01] MEDS: ENOXAPARIN 40 MG/0.4 ML SYRINGE. SQ SCH (22:26)
[2018-12-01 23:00] VITALS: BP 123/66
[2018-12-02 03:00] VITALS: BP 138/69
[2018-12-02] MEDS: methylPREDNISolone SOD SUCC PF 125 MG/2 ML VIAL. IV SCH ×3 (05:48→21:48)
[2018-12-02 07:00] VITALS: BP 137/71
[2018-12-02] MEDS: BUDESONIDE 0.5 MG/2 ML NEBU. NEB SCH ×2 (07:26→20:04)
[2018-12-02] MEDS: IPRATRPIUM/ALBUTEROL 0.5/2.5MG 3 ML NEBU. NEB SCH ×4 (07:26→20:04)
[2018-12-02] MEDS: INSULIN LISPRO 300 UNITS/3 ML INSULN.PEN. SQ SCH ×3 (08:00→17:04)
[2018-12-02] MEDS: amLODIPine BESYLATE 5 MG TABLET PO SCH (09:24)
[2018-12-02] MEDS: LACTOBACILLUS RHAMNOSUS GG 1 CAPSULE. PO SCH ×2 (09:24→21:21)
[2018-12-02 11:08] VITALS: BP 121/71
--- NOTE | 2018-12-02 12:35 | PDOC ---
PULMONARY PROGRESS NOTES Subjective no soa Vitals Vital Signs Date Time Temp Pulse Resp B/P (MAP) Pulse Ox O2 Delivery O2 Flow Rate FiO2 12/02/18 11:24 Room Air 12/02/18 11:08 98.3 78 14 121/71 (88) 94 98.3 General: Alert, No acute distress Lungs: Clear Cardiovascular: S1 Abdomen: Soft Neuro Exam: Alert Extremities: No Edema Skin: Warm Labs Laboratory Tests Test 11/30/18 16:58 12/01/18 03:20 12/01/18 03:40 12/01/18 08:39 Glucose (Fingerstick) 145 mg/dL (70-99) 108 mg/dL (70-99) Sodium Level 139 mmol/L (136-145) Potassium Level 4.0 mmol/L (3.5-5.1) Chloride Level 104 mmol/L (98-107) Carbon Dioxide Level 22 mmol/L (21-32) Anion Gap 13 (6-14) Blood Urea Nitrogen 19 mg/dL (8-26) Creatinine 1.6 mg/dL (0.7-1.3) Estimated GFR (Cockcroft-Gault) 50.7 BUN/Creatinine Ratio 12 (6-20) Glucose Level 140 mg/dL (70-99) Hemoglobin A1c 6.3 % (4.8-5.6) Calcium Level 9.0 mg/dL (8.5-10.1) Iron Level 53 ug/dL (65-175) Total Iron Binding Capacity 204 ug/dL (250-450) Iron Saturation 26 % (15-34) Total Bilirubin 0.3 mg/dL (0.2-1.0) Aspartate Amino Transf (AST/SGOT) 14 U/L (15-37) Alanine Aminotransferase (ALT/SGPT) 9 U/L (16-63) Alkaline Phosphatase 60 U/L (46-116) Total Protein 6.7 g/dL (6.4-8.2) Albumin 2.7 g/dL (3.4-5.0) Albumin/Globulin Ratio 0.7 (1.0-1.7) White Blood Count 6.4 x10^3/uL (4.0-11.0) Red Blood Count 5.43 x10^6/uL (4.30-5.70) Hemoglobin 12.5 g/dL (13.0-17.5) Hematocrit 40.1 % (39.0-53.0) Mean Corpuscular Volume 74 fL (79-100) Mean Corpuscular Hemoglobin 23 pg (25-35) Mean Corpuscular Hemoglobin Concent 31 g/dL (31-37) Red Cell Distribution Width 15.3 % (11.5-14.5) Platelet Count 151 x10^3/uL (140-400) Neutrophils (%) (Auto) 73 % (31-73) Lymphocytes (%) (Auto) 17 % (24-48) Monocytes (%) (Auto) 10 % (0-9) Eosinophils (%) (Auto) 0 % (0-3) Basophils (%) (Auto) 0 % (0-3) Neutrophils # (Auto) 4.7 x10^3uL (1.8-7.7) Lymphocytes # (Auto) 1.1 x10^3/uL (1.0-4.8) Monocytes # (Auto) 0.6 x10^3/uL (0.0-1.1) Eosinophils # (Auto) 0.0 x10^3/uL (0.0-0.7) Basophils # (Auto) 0.0 x10^3/uL (0.0-0.2) Platelet Estimate Adequate (ADEQUATE) Large Platelets Occ Microcytosis Slight Test 12/01/18 11:42 12/01/18 16:44 12/01/18 21:06 12/02/18 07:45 Glucose (Fingerstick) 101 mg/dL (70-99) 148 mg/dL (70-99) 242 mg/dL (70-99) 149 mg/dL (70-99) Test 12/02/18 11:46 Glucose (Fingerstick) 271 mg/dL (70-99) Laboratory Tests Test 12/01/18 16:44 12/01/18 21:06 12/02/18 07:45 12/02/18 11:46 Glucose (Fingerstick) 148 mg/dL (70-99) 242 mg/dL (70-99) 149 mg/dL (70-99) 271 mg/dL (70-99) Comments CT CHEST 1. Right middle lobe atelectasis with narrowing of the proximal right middle lobe bronchus. Bronchoscopic evaluation should be considered for further evaluation. 2. 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 Minimal linear scarring and/or atelectasis in the lung bases. Impression . 1. Acute exacerbation of chronic obstructive pulmonary disease, triggered by acute pneumonia, 2. Abnormal chest x-ray with faint opacity in the right lower lobe, likely related to right lower lobe pneumonia. ABNORMAL CT CHEST WITH Right middle lobe atelectasis with narrowing of the proximal right middle lobe bronchus. 3. Moderate protein-calorie malnutrition. 4. Mild renal insufficiency. Plan . 1. wheezing Improved. IV steroids. Pulmicort nebulizer along with DuoNebs. 2. Continue antibiotics. 3. Bronch in am. Pt agrees 4. hold Lovenox for DVT prophylaxis. 5. Discussed with RN. EDNA LEOS MD December 02, 2018 12:35
--- NOTE | 2018-12-02 13:30 | NUR ---
Patient verb. understanding POC: NPO after MN, diagnostic bronch. tomorrow. Consents witnessed. Sri in Outpatient states scheduled for 11:30, patient verb. undersanding.
[2018-12-02 15:00] VITALS: BP 118/52
--- NOTE | 2018-12-02 15:49 | PDOC ---
PROGRESS NOTES Chief Complaint Chief Complaint pneumonia w. sepsis cough dyspnea hazy opacity to upper lobe, consult Pulm, bronch in am Moderate protein-calorie malnutrition. Mild renal insufficiency. BPH, check post-void, should follow with uro outpatient, will refer History of Present Illness History of Present Illness Mr. Calderon is a 78 year old M w/ PMHx HTN, DM2, BPH who presents for acute dyspnea with cough and sob. he has not felt well for days, fever, chills, weakness and cough - found with pneumonia on CXR, admitted for further care He still has a pretty violent cough today, not particularly short of breath. Seen by pulm. CT chest concerning for some possible mucous plugging, planning for bronchoscopy in AM. Urinary retention still an issue Vitals Vitals Vital Signs Date Time Temp Pulse Resp B/P (MAP) Pulse Ox O2 Delivery O2 Flow Rate FiO2 12/02/18 15:42 Room Air 12/02/18 11:08 98.3 78 14 121/71 (88) 94 98.3 Physical Exam General: Alert, Oriented X3, mild distress Lungs: Clear Abdomen: Normal bowel sounds, Soft Extremities: No cyanosis, Normal pulses Skin: No rashes, No breakdown, No significant lesion Labs LABS Laboratory Tests Test 12/01/18 16:44 12/01/18 21:06 12/02/18 07:45 12/02/18 11:46 Glucose (Fingerstick) 148 mg/dL (70-99) 242 mg/dL (70-99) 149 mg/dL (70-99) 271 mg/dL (70-99) Assessment and Plan Assessmemt and Plan Problems Medical Problems: (1) Pneumonia Status: Acute Comment Review of Relevant I have reviewed the following items ara (where applicable) has been applied. Labs Laboratory Tests Test 11/30/18 16:58 12/01/18 03:20 12/01/18 03:40 12/01/18 08:39 Glucose (Fingerstick) 145 mg/dL (70-99) 108 mg/dL (70-99) Sodium Level 139 mmol/L (136-145) Potassium Level 4.0 mmol/L (3.5-5.1) Chloride Level 104 mmol/L (98-107) Carbon Dioxide Level 22 mmol/L (21-32) Anion Gap 13 (6-14) Blood Urea Nitrogen 19 mg/dL (8-26) Creatinine 1.6 mg/dL (0.7-1.3) Estimated GFR (Cockcroft-Gault) 50.7 BUN/Creatinine Ratio 12 (6-20) Glucose Level 140 mg/dL (70-99) Hemoglobin A1c 6.3 % (4.8-5.6) Calcium Level 9.0 mg/dL (8.5-10.1) Iron Level 53 ug/dL (65-175) Total Iron Binding Capacity 204 ug/dL (250-450) Iron Saturation 26 % (15-34) Total Bilirubin 0.3 mg/dL (0.2-1.0) Aspartate Amino Transf (AST/SGOT) 14 U/L (15-37) Alanine Aminotransferase (ALT/SGPT) 9 U/L (16-63) Alkaline Phosphatase 60 U/L (46-116) Total Protein 6.7 g/dL (6.4-8.2) Albumin 2.7 g/dL (3.4-5.0) Albumin/Globulin Ratio 0.7 (1.0-1.7) White Blood Count 6.4 x10^3/uL (4.0-11.0) Red Blood Count 5.43 x10^6/uL (4.30-5.70) Hemoglobin 12.5 g/dL (13.0-17.5) Hematocrit 40.1 % (39.0-53.0) Mean Corpuscular Volume 74 fL (79-100) Mean Corpuscular Hemoglobin 23 pg (25-35) Mean Corpuscular Hemoglobin Concent 31 g/dL (31-37) Red Cell Distribution Width 15.3 % (11.5-14.5) Platelet Count 151 x10^3/uL (140-400) Neutrophils (%) (Auto) 73 % (31-73) Lymphocytes (%) (Auto) 17 % (24-48) Monocytes (%) (Auto) 10 % (0-9) Eosinophils (%) (Auto) 0 % (0-3) Basophils (%) (Auto) 0 % (0-3) Neutrophils # (Auto) 4.7 x10^3uL (1.8-7.7) Lymphocytes # (Auto) 1.1 x10^3/uL (1.0-4.8) Monocytes # (Auto) 0.6 x10^3/uL (0.0-1.1) Eosinophils # (Auto) 0.0 x10^3/uL (0.0-0.7) Basophils # (Auto) 0.0 x10^3/uL (0.0-0.2) Platelet Estimate Adequate (ADEQUATE) Large Platelets Occ Microcytosis Slight Test 12/01/18 11:42 12/01/18 16:44 12/01/18 21:06 12/02/18 07:45 Glucose (Fingerstick) 101 mg/dL (70-99) 148 mg/dL (70-99) 242 mg/dL (70-99) 149 mg/dL (70-99) Test 12/02/18 11:46 Glucose (Fingerstick) 271 mg/dL (70-99) Laboratory Tests Test 12/01/18 16:44 12/01/18 21:06 12/02/18 07:45 12/02/18 11:46 Glucose (Fingerstick) 148 mg/dL (70-99) 242 mg/dL (70-99) 149 mg/dL (70-99) 271 mg/dL (70-99) Microbiology 11/30/18 Blood Culture - Preliminary, Resulted NO GROWTH AFTER 2 DAYS Medications Current Medications Albuterol/ Ipratropium (Duoneb) 3 ml 1X ONCE NEB Last administered on 11/30/18at 11:10; Start 11/30/18 at 11:00; Stop 11/30/18 at 11:02; Status DC Prednisone (Prednisone) 50 mg 1X ONCE PO Last administered on 11/30/18at 11:00; Start 11/30/18 at 11:00; Stop 11/30/18 at 11:02; Status DC Levofloxacin/ Dextrose 150 ml @ 100 mls/hr 1X ONCE IV Last administered on 11/30/18at 12:34; Start 11/30/18 at 12:15; Stop 11/30/18 at 13:44; Status DC Albuterol/ Ipratropium (Duoneb) 3 ml RTQID NEB Last administered on 12/02/18at 15:42; Start 11/30/18 at 17:00 Budesonide (Pulmicort) 0.5 mg RTBID NEB Last administered on 12/02/18at 07:26; Start 11/30/18 at 20:00 Levofloxacin (Levaquin) 750 mg DAILY06 PO Last administered on 12/01/18at 05:08; Start 12/01/18 at 06:00; Stop 12/01/18 at 13:35; Status DC Nicotine (Nicoderm Cq 14mg) 1 patch PRN DAILY PRN TD SMOKING CESSATION; Start 11/30/18 at 16:45 Nicotine Polacrilex (Nicorette Gum) 1 each PRN Q1HR PRN BC SMOKING CESSATION; Start 11/30/18 at 16:45 Insulin Human Lispro (HumaLOG) 0-7 UNITS TIDWMEALS SQ Last administered on 12/02/18at 11:54; Start 11/30/18 at 17:00 Dextrose (Dextrose 50%-Water Syringe) 12.5 gm PRN Q15MIN PRN IV SEE COMMENTS; Start 11/30/18 at 16:45 Amlodipine Besylate (Norvasc) 2.5 mg DAILY PO Last administered on 12/02/18at 09:24; Start 11/30/18 at 17:30 Enoxaparin Sodium (Lovenox Per Pharmacy Prophylaxis Dosing) 1 each PRN DAILY PRN MC SEE COMMENTS; Start 11/30/18 at 16:45; Stop 12/02/18 at 12:37; Status DC Enoxaparin Sodium (Lovenox 40mg Syringe) 40 mg Q24H SQ Last administered on 12/01/18at 22:26; Start 11/30/18 at 21:00; Stop 12/02/18 at 12:37; Status DC Methylprednisolone Sodium Succinate (SOLU-Medrol 125MG VIAL) 60 mg Q8HRS IV Last administered on 12/02/18at 13:23; Start 12/01/18 at 14:00 Levofloxacin (Levaquin) 750 mg Q48H PO ; Start 12/03/18 at 06:00 Lactobacillus Rhamnosus (Culturelle) 1 cap BID PO Last administered on 12/02/18at 09:24; Start 12/01/18 at 21:00 Fentanyl Citrate (Fentanyl 2ml Vial) 25 mcg PRN Q5MIN PRN IV MILD PAIN 1-3; Start 12/03/18 at 07:00; Stop 12/03/18 at 21:00 Fentanyl Citrate (Fentanyl 2ml Vial) 50 mcg PRN Q5MIN PRN IV MODERATE TO SEVERE PAIN; Start 12/03/18 at 07:00; Stop 12/03/18 at 21:00 Morphine Sulfate (Morphine Sulfate) 1 mg PRN Q10MIN PRN IV SEVERE PAIN 7-10; Start 12/03/18 at 07:00; Stop 12/03/18 at 21:00 Ringer's Solution 1,000 ml @ 30 mls/hr Q24H IV ; Start 12/03/18 at 07:00; Stop 12/03/18 at 18:59 Hydromorphone HCl (Dilaudid) 0.5 mg PRN Q10MIN PRN IV SEV PAIN, Second choice; Start 12/03/18 at 07:00; Stop 12/03/18 at 21:00 Prochlorperazine Edisylate (Compazine) 5 mg PACU PRN PRN IV NAUSEA, MRX1; Start 12/03/18 at 07:00; Stop 12/03/18 at 21:00 Vitals/I & O Vital Sign - Last 24 Hours 12/01/18 12/01/18 12/01/18 12/01/18 19:00 19:48 20:00 23:00 Temp 98.6 98.6 98.6 98.6 Pulse 70 72 Resp 20 20 B/P (MAP) 134/73 (93) 123/66 (85) Pulse Ox 94 94 O2 Delivery Room Air Room Air Room Air Room Air 12/02/18 12/02/18 12/02/18 12/02/18 03:00 07:00 07:26 08:00 Temp 98.1 97.6 98.1 97.6 Pulse 63 76 Resp 20 14 B/P (MAP) 138/69 (92) 137/71 (93) Pulse Ox 95 95 97 O2 Delivery Room Air Room Air Room Air Room Air 12/02/18 12/02/18 12/02/18 12/02/18 09:24 11:08 11:24 15:42 Temp 98.3 98.3 Pulse 76 78 Resp 14 B/P (MAP) 137/71 121/71 (88) Pulse Ox 94 O2 Delivery Room Air Room Air Room Air Intake and Output 12/01/18 12/01/18 12/02/18 14:59 22:59 06:59 Intake Total 200 ml 200 ml Output Total 250 ml 400 ml Balance -50 ml -200 ml BURKE PIERRE MD December 02, 2018 15:49
[2018-12-02 19:00] VITALS: BP 122/61
[2018-12-02] MEDS: TAMSULOSIN 0.4 MG CAP.ER.24H. PO SCH (21:21)
[2018-12-02 22:54] VITALS: BP 142/78
[2018-12-03 03:00] VITALS: BP 116/69
[2018-12-03 05:09] LABS: BASO % 0 % (0-3); EOS % 0 % (0-3); HEMATOCRIT 38.8 % (39.0-53.0); LYMPH # 0.8 x10^3/uL (1.0-4.8); LYMPH % 8 % (24-48); MEAN CORPUSCULAR HEMOGLOBIN 23 pg (25-35); MEAN CORPUSCULAR HGB CONC 31 g/dL (31-37); MEAN CORPUSCULAR VOLUME 73 fL (79-100); MONO # 0.3 x10^3/uL (0.0-1.1); MONO % 3 % (0-9); NEUT # 8.6 x10^3uL (1.8-7.7); NEUT % 89 % (31-73); PLATELET COUNT 155 x10^3/uL (140-400); RED BLOOD COUNT 5.31 x10^6/uL (4.30-5.70); RED CELL DISTRIBUTION WIDTH 15.3 % (11.5-14.5); WHITE BLOOD COUNT 9.7 x10^3/uL (4.0-11.0)
[2018-12-03] MEDS: methylPREDNISolone SOD SUCC PF 125 MG/2 ML VIAL. IV SCH ×3 (05:46→20:25)
[2018-12-03 05:58] LABS: CALCIUM 8.7 mg/dL (8.5-10.1); CREATININE 1.4 mg/dL (0.7-1.3); GFR 59.2; POTASSIUM 4.3 mmol/L (3.5-5.1)
[2018-12-03 06:32] VITALS: BP 113/66
[2018-12-03] MEDS ORDERED: PROCHLORPERAZINE 10 MG/2 ML VIAL. IV PRN (07:00)
[2018-12-03] MEDS ORDERED: MORPHINE SULFATE 2 MG/ML VIAL. IV PRN (07:00)
[2018-12-03] MEDS ORDERED: fentaNYL PF VIAL 100 MCG/2 ML VIAL IV PRN ×4 (07:00→11:00)
[2018-12-03] MEDS ORDERED: HYDROmorphone 2 MG/ML VIAL IV PRN (07:00)
[2018-12-03] MEDS ORDERED: IV RINGERS,LACTATED 1000ML 1,000 ML IV SCH ×2 (07:00→10:48)
[2018-12-03] MEDS: IPRATRPIUM/ALBUTEROL 0.5/2.5MG 3 ML NEBU. NEB SCH ×4 (07:03→19:58)
[2018-12-03] MEDS: BUDESONIDE 0.5 MG/2 ML NEBU. NEB SCH ×2 (07:03→19:58)
[2018-12-03 07:25] LABS: % BANDS 3 % (0-9); % LYMPHS 6 % (24-48); % MONOS 2 % (0-10); % SEGS 89 % (35-66); HYPOCHROMIA SLIGHT; PLT ESTIMATE ADEQUATE (ADEQUATE)
[2018-12-03 07:26] LABS: ANISOCYTOSIS SLIGHT; MICROCYTOSIS SLIGHT
[2018-12-03] MEDS: INSULIN LISPRO 300 UNITS/3 ML INSULN.PEN. SQ SCH ×3 (08:00→20:17)
[2018-12-03] MEDS ORDERED: EPINEPHrine 1 MG/ML VIAL INJ PRN (08:30)
[2018-12-03] MEDS ORDERED: LIDOCAINE 2% VISCOUS 100 ML BOTTLE. MM PRN (08:30)
[2018-12-03] MEDS ORDERED: LIDOCAINE 1% Multi-Dose 20 ML VIAL. INJ PRN (08:30)
[2018-12-03] MEDS ORDERED: LIDOCAINE 4% TOPICAL 50 ML SOLUTION. MM PRN (08:30)
[2018-12-03] MEDS: LACTOBACILLUS RHAMNOSUS GG 1 CAPSULE. PO SCH ×2 (09:00→20:24)
--- NOTE | 2018-12-03 09:10 | PDOC ---
PROGRESS NOTES Chief Complaint Chief Complaint pneumonia w. sepsis cough dyspnea hazy opacity to upper lobe, consult Pulm, bronch in am Moderate protein-calorie malnutrition. Mild renal insufficiency. BPH, check post-void, should follow with uro outpatient, will refer History of Present Illness History of Present Illness Mr. Calderon is a 78 year old M w/ PMHx HTN, DM2, BPH who presents for acute dyspnea with cough and sob. he has not felt well for days, fever, chills, weakness and cough - found with pneumonia on CXR, admitted for further care He still has a pretty violent cough today, not particularly short of breath. Seen by pulm. CT chest concerning for some possible mucous plugging, bronchoscopy this AM. Urinary retention still an issue Vitals Vitals Vital Signs Date Time Temp Pulse Resp B/P (MAP) Pulse Ox O2 Delivery O2 Flow Rate FiO2 12/03/18 07:04 91 Room Air 12/03/18 06:32 98.0 71 20 113/66 (82) 98.0 Physical Exam General: Alert, Oriented X3, mild distress Lungs: Clear Abdomen: Normal bowel sounds, Soft Extremities: No cyanosis, Normal pulses Skin: No rashes, No breakdown, No significant lesion Labs LABS Laboratory Tests Test 12/02/18 11:46 12/02/18 17:03 12/02/18 19:58 12/03/18 04:11 Glucose (Fingerstick) 271 mg/dL (70-99) 203 mg/dL (70-99) 247 mg/dL (70-99) White Blood Count 9.7 x10^3/uL (4.0-11.0) Red Blood Count 5.31 x10^6/uL (4.30-5.70) Hemoglobin 12.0 g/dL (13.0-17.5) Hematocrit 38.8 % (39.0-53.0) Mean Corpuscular Volume 73 fL (79-100) Mean Corpuscular Hemoglobin 23 pg (25-35) Mean Corpuscular Hemoglobin Concent 31 g/dL (31-37) Red Cell Distribution Width 15.3 % (11.5-14.5) Platelet Count 155 x10^3/uL (140-400) Neutrophils (%) (Auto) 89 % (31-73) Lymphocytes (%) (Auto) 8 % (24-48) Monocytes (%) (Auto) 3 % (0-9) Eosinophils (%) (Auto) 0 % (0-3) Basophils (%) (Auto) 0 % (0-3) Neutrophils # (Auto) 8.6 x10^3uL (1.8-7.7) Lymphocytes # (Auto) 0.8 x10^3/uL (1.0-4.8) Monocytes # (Auto) 0.3 x10^3/uL (0.0-1.1) Eosinophils # (Auto) 0.0 x10^3/uL (0.0-0.7) Basophils # (Auto) 0.0 x10^3/uL (0.0-0.2) Segmented Neutrophils % 89 % (35-66) Band Neutrophils % 3 % (0-9) Lymphocytes % 6 % (24-48) Monocytes % 2 % (0-10) Platelet Estimate Adequate (ADEQUATE) Hypochromasia Slight Anisocytosis Slight Microcytosis Slight Sodium Level 139 mmol/L (136-145) Potassium Level 4.3 mmol/L (3.5-5.1) Chloride Level 105 mmol/L (98-107) Carbon Dioxide Level 23 mmol/L (21-32) Anion Gap 11 (6-14) Blood Urea Nitrogen 22 mg/dL (8-26) Creatinine 1.4 mg/dL (0.7-1.3) Estimated GFR (Cockcroft-Gault) 59.2 Glucose Level 214 mg/dL (70-99) Calcium Level 8.7 mg/dL (8.5-10.1) Test 12/03/18 09:00 Glucose (Fingerstick) 172 mg/dL (70-99) Assessment and Plan Assessmemt and Plan Problems Medical Problems: (1) Pneumonia Status: Acute Comment Review of Relevant I have reviewed the following items ara (where applicable) has been applied. Labs Laboratory Tests Test 12/01/18 11:42 12/01/18 16:44 12/01/18 21:06 12/02/18 07:45 Glucose (Fingerstick) 101 mg/dL (70-99) 148 mg/dL (70-99) 242 mg/dL (70-99) 149 mg/dL (70-99) Test 12/02/18 11:46 12/02/18 17:03 12/02/18 19:58 12/03/18 04:11 Glucose (Fingerstick) 271 mg/dL (70-99) 203 mg/dL (70-99) 247 mg/dL (70-99) White Blood Count 9.7 x10^3/uL (4.0-11.0) Red Blood Count 5.31 x10^6/uL (4.30-5.70) Hemoglobin 12.0 g/dL (13.0-17.5) Hematocrit 38.8 % (39.0-53.0) Mean Corpuscular Volume 73 fL (79-100) Mean Corpuscular Hemoglobin 23 pg (25-35) Mean Corpuscular Hemoglobin Concent 31 g/dL (31-37) Red Cell Distribution Width 15.3 % (11.5-14.5) Platelet Count 155 x10^3/uL (140-400) Neutrophils (%) (Auto) 89 % (31-73) Lymphocytes (%) (Auto) 8 % (24-48) Monocytes (%) (Auto) 3 % (0-9) Eosinophils (%) (Auto) 0 % (0-3) Basophils (%) (Auto) 0 % (0-3) Neutrophils # (Auto) 8.6 x10^3uL (1.8-7.7) Lymphocytes # (Auto) 0.8 x10^3/uL (1.0-4.8) Monocytes # (Auto) 0.3 x10^3/uL (0.0-1.1) Eosinophils # (Auto) 0.0 x10^3/uL (0.0-0.7) Basophils # (Auto) 0.0 x10^3/uL (0.0-0.2) Segmented Neutrophils % 89 % (35-66) Band Neutrophils % 3 % (0-9) Lymphocytes % 6 % (24-48) Monocytes % 2 % (0-10) Platelet Estimate Adequate (ADEQUATE) Hypochromasia Slight Anisocytosis Slight Microcytosis Slight Sodium Level 139 mmol/L (136-145) Potassium Level 4.3 mmol/L (3.5-5.1) Chloride Level 105 mmol/L (98-107) Carbon Dioxide Level 23 mmol/L (21-32) Anion Gap 11 (6-14) Blood Urea Nitrogen 22 mg/dL (8-26) Creatinine 1.4 mg/dL (0.7-1.3) Estimated GFR (Cockcroft-Gault) 59.2 Glucose Level 214 mg/dL (70-99) Calcium Level 8.7 mg/dL (8.5-10.1) Test 12/03/18 09:00 Glucose (Fingerstick) 172 mg/dL (70-99) Laboratory Tests Test 12/02/18 11:46 12/02/18 17:03 12/02/18 19:58 12/03/18 04:11 Glucose (Fingerstick) 271 mg/dL (70-99) 203 mg/dL (70-99) 247 mg/dL (70-99) White Blood Count 9.7 x10^3/uL (4.0-11.0) Red Blood Count 5.31 x10^6/uL (4.30-5.70) Hemoglobin 12.0 g/dL (13.0-17.5) Hematocrit 38.8 % (39.0-53.0) Mean Corpuscular Volume 73 fL (79-100) Mean Corpuscular Hemoglobin 23 pg (25-35) Mean Corpuscular Hemoglobin Concent 31 g/dL (31-37) Red Cell Distribution Width 15.3 % (11.5-14.5) Platelet Count 155 x10^3/uL (140-400) Neutrophils (%) (Auto) 89 % (31-73) Lymphocytes (%) (Auto) 8 % (24-48) Monocytes (%) (Auto) 3 % (0-9) Eosinophils (%) (Auto) 0 % (0-3) Basophils (%) (Auto) 0 % (0-3) Neutrophils # (Auto) 8.6 x10^3uL (1.8-7.7) Lymphocytes # (Auto) 0.8 x10^3/uL (1.0-4.8) Monocytes # (Auto) 0.3 x10^3/uL (0.0-1.1) Eosinophils # (Auto) 0.0 x10^3/uL (0.0-0.7) Basophils # (Auto) 0.0 x10^3/uL (0.0-0.2) Segmented Neutrophils % 89 % (35-66) Band Neutrophils % 3 % (0-9) Lymphocytes % 6 % (24-48) Monocytes % 2 % (0-10) Platelet Estimate Adequate (ADEQUATE) Hypochromasia Slight Anisocytosis Slight Microcytosis Slight Sodium Level 139 mmol/L (136-145) Potassium Level 4.3 mmol/L (3.5-5.1) Chloride Level 105 mmol/L (98-107) Carbon Dioxide Level 23 mmol/L (21-32) Anion Gap 11 (6-14) Blood Urea Nitrogen 22 mg/dL (8-26) Creatinine 1.4 mg/dL (0.7-1.3) Estimated GFR (Cockcroft-Gault) 59.2 Glucose Level 214 mg/dL (70-99) Calcium Level 8.7 mg/dL (8.5-10.1) Test 12/03/18 09:00 Glucose (Fingerstick) 172 mg/dL (70-99) Microbiology 11/30/18 Blood Culture - Preliminary, Resulted NO GROWTH AFTER 2 DAYS Medications Current Medications Albuterol/ Ipratropium (Duoneb) 3 ml 1X ONCE NEB Last administered on 11/30/18at 11:10; Start 11/30/18 at 11:00; Stop 11/30/18 at 11:02; Status DC Prednisone (Prednisone) 50 mg 1X ONCE PO Last administered on 11/30/18at 11:00; Start 11/30/18 at 11:00; Stop 11/30/18 at 11:02; Status DC Levofloxacin/ Dextrose 150 ml @ 100 mls/hr 1X ONCE IV Last administered on 11/30/18at 12:34; Start 11/30/18 at 12:15; Stop 11/30/18 at 13:44; Status DC Albuterol/ Ipratropium (Duoneb) 3 ml RTQID NEB Last administered on 12/03/18at 07:03; Start 11/30/18 at 17:00 Budesonide (Pulmicort) 0.5 mg RTBID NEB Last administered on 12/03/18at 07:03; Start 11/30/18 at 20:00 Levofloxacin (Levaquin) 750 mg DAILY06 PO Last administered on 12/01/18at 05:08; Start 12/01/18 at 06:00; Stop 12/01/18 at 13:35; Status DC Nicotine (Nicoderm Cq 14mg) 1 patch PRN DAILY PRN TD SMOKING CESSATION; Start 11/30/18 at 16:45 Nicotine Polacrilex (Nicorette Gum) 1 each PRN Q1HR PRN BC SMOKING CESSATION; Start 11/30/18 at 16:45 Insulin Human Lispro (HumaLOG) 0-7 UNITS TIDWMEALS SQ Last administered on 12/02at 17:04; Start 11/30/18 at 17:00 Dextrose (Dextrose 50%-Water Syringe) 12.5 gm PRN Q15MIN PRN IV SEE COMMENTS; Start 11/30/18 at 16:45 Amlodipine Besylate (Norvasc) 2.5 mg DAILY PO Last administered on 12/02/18at 09:24; Start 11/30/18 at 17:30 Enoxaparin Sodium (Lovenox Per Pharmacy Prophylaxis Dosing) 1 each PRN DAILY PRN MC SEE COMMENTS; Start 11/30/18 at 16:45; Stop 12/02/18 at 12:37; Status DC Enoxaparin Sodium (Lovenox 40mg Syringe) 40 mg Q24H SQ Last administered on 12/01/18at 22:26; Start 11/30/18 at 21:00; Stop 12/02/18 at 12:37; Status DC Methylprednisolone Sodium Succinate (SOLU-Medrol 125MG VIAL) 60 mg Q8HRS IV L ast administered on 12/03/18at 05:46; Start 12/01/18 at 14:00 Levofloxacin (Levaquin) 750 mg Q48H PO Last administered on 12/03/18at 05:47; Start 12/03/18 at 06:00 Lactobacillus Rhamnosus (Culturelle) 1 cap BID PO Last administered on 12/02/18at 21:21; Start 12/01/18 at 21:00 Fentanyl Citrate (Fentanyl 2ml Vial) 25 mcg PRN Q5MIN PRN IV MILD PAIN 1-3; Start 12/03/18 at 07:00; Stop 12/03/18 at 21:00 Fentanyl Citrate (Fentanyl 2ml Vial) 50 mcg PRN Q5MIN PRN IV MODERATE TO SEVERE PAIN; Start 12/03/18 at 07:00; Stop 12/03/18 at 21:00 Morphine Sulfate (Morphine Sulfate) 1 mg PRN Q10MIN PRN IV SEVERE PAIN 7-10; Start 12/03/18 at 07:00; Stop 12/03/18 at 21:00 Ringer's Solution 1,000 ml @ 30 mls/hr Q24H IV ; Start 12/03/18 at 07:00; Stop 12/03/18 at 18:59 Hydromorphone HCl (Dilaudid) 0.5 mg PRN Q10MIN PRN IV SEV PAIN, Second choice; Start 12/03/18 at 07:00; Stop 12/03/18 at 21:00 Prochlorperazine Edisylate (Compazine) 5 mg PACU PRN PRN IV NAUSEA, MRX1; Start 12/03/18 at 07:00; Stop 12/03/18 at 21:00 Finasteride (Proscar) 5 mg DAILY PO ; Start 12/03/18 at 09:00 Tamsulosin HCl (Flomax) 0.4 mg QHS PO Last administered on 12/02/18at 21:21; S tart 12/02/18 at 21:00 Lidocaine HCl (Lidocaine 2% Viscous) 100 ml PRN 1X PRN MM MOUTH PAIN; Start 12/03/18 at 08:30; Stop 12/04/18 at 08:29 Lidocaine HCl (Lidocaine 1% 20ml Vial) 20 ml PRN 1X PRN INJ SEE COMMENTS; Start 12/03/18 at 08:30; Stop 12/04/18 at 08:29 Epinephrine HCl (Adrenalin) 1 mg PRN 1X PRN INJ SEE COMMENTS; Start 12/03/18 at 08:30; Stop 12/04/18 at 08:29 Lidocaine HCl 50 ml PRN 1X PRN MM SEE COMMENTS; Start 12/03/18 at 08:30; Stop 12/04/18 at 08:29 Vitals/I & O Vital Sign - Last 24 Hours 12/02/18 12/02/18 12/02/18 12/02/18 09:24 11:08 11:24 15:00 Temp 98.3 98.0 98.3 98.0 Pulse 76 78 74 Resp 14 16 B/P (MAP) 137/71 121/71 (88) 118/52 (74) Pulse Ox 94 94 O2 Delivery Room Air Room Air Room Air 5/16/19 5/16/19 5/16/19 5/16/19 15:42 19:00 20:00 20:05 Temp 98.3 98.3 Pulse 84 Resp 17 B/P (MAP) 122/61 (81) Pulse Ox 95 O2 Delivery Room Air Room Air Room Air Room Air 12/02/18 12/02/18 12/03/18 12/03/18 20:05 22:54 03:00 06:32 Temp 97.8 98.1 98.0 97.8 98.1 98.0 Pulse 83 72 71 Resp 18 18 20 B/P (MAP) 142/78 (99) 116/69 (85) 113/66 (82) Pulse Ox 97 95 94 O2 Delivery Room Air Room Air Room Air Room Air 12/03/18 07:04 Pulse Ox 91 O2 Delivery Room Air Intake and Output 12/02/18 12/02/18 12/03/18 15:00 23:00 07:00 Intake Total 450 ml Output Total 450 ml Balance -450 ml 450 ml BURKE PIERRE MD December 03, 2018 09:10
[2018-12-03] MEDS ORDERED: LIDOCAINE 1% Multi-Dose 20 ML VIAL. ONE (09:17)
[2018-12-03] MEDS ORDERED: EPINEPHrine 1 MG/ML VIAL ONE (09:17)
[2018-12-03] MEDS ORDERED: LIDOCAINE 2% VISCOUS 100 ML BOTTLE. ONE (09:17)
[2018-12-03] MEDS ORDERED: LIDOCAINE 4% TOPICAL 50 ML SOLUTION. ONE (09:18)
--- NOTE | 2018-12-03 10:47 | PDOC ---
PULMONARY PROGRESS NOTES Subjective no soa Vitals Vital Signs Date Time Temp Pulse Resp B/P (MAP) Pulse Ox O2 Delivery O2 Flow Rate FiO2 12/03/18 07:04 91 Room Air 12/03/18 06:32 98.0 71 20 113/66 (82) 98.0 General: Alert, No acute distress Lungs: Clear Cardiovascular: S1 Abdomen: Soft Neuro Exam: Alert Extremities: No Edema Skin: Warm Labs Laboratory Tests Test 12/01/18 11:42 12/01/18 16:44 12/01/18 21:06 12/02/18 07:45 Glucose (Fingerstick) 101 mg/dL (70-99) 148 mg/dL (70-99) 242 mg/dL (70-99) 149 mg/dL (70-99) Test 12/02/18 11:46 12/02/18 17:03 12/02/18 19:58 12/03/18 04:11 Glucose (Fingerstick) 271 mg/dL (70-99) 203 mg/dL (70-99) 247 mg/dL (70-99) White Blood Count 9.7 x10^3/uL (4.0-11.0) Red Blood Count 5.31 x10^6/uL (4.30-5.70) Hemoglobin 12.0 g/dL (13.0-17.5) Hematocrit 38.8 % (39.0-53.0) Mean Corpuscular Volume 73 fL (79-100) Mean Corpuscular Hemoglobin 23 pg (25-35) Mean Corpuscular Hemoglobin Concent 31 g/dL (31-37) Red Cell Distribution Width 15.3 % (11.5-14.5) Platelet Count 155 x10^3/uL (140-400) Neutrophils (%) (Auto) 89 % (31-73) Lymphocytes (%) (Auto) 8 % (24-48) Monocytes (%) (Auto) 3 % (0-9) Eosinophils (%) (Auto) 0 % (0-3) Basophils (%) (Auto) 0 % (0-3) Neutrophils # (Auto) 8.6 x10^3uL (1.8-7.7) Lymphocytes # (Auto) 0.8 x10^3/uL (1.0-4.8) Monocytes # (Auto) 0.3 x10^3/uL (0.0-1.1) Eosinophils # (Auto) 0.0 x10^3/uL (0.0-0.7) Basophils # (Auto) 0.0 x10^3/uL (0.0-0.2) Segmented Neutrophils % 89 % (35-66) Band Neutrophils % 3 % (0-9) Lymphocytes % 6 % (24-48) Monocytes % 2 % (0-10) Platelet Estimate Adequate (ADEQUATE) Hypochromasia Slight Anisocytosis Slight Microcytosis Slight Sodium Level 139 mmol/L (136-145) Potassium Level 4.3 mmol/L (3.5-5.1) Chloride Level 105 mmol/L (98-107) Carbon Dioxide Level 23 mmol/L (21-32) Anion Gap 11 (6-14) Blood Urea Nitrogen 22 mg/dL (8-26) Creatinine 1.4 mg/dL (0.7-1.3) Estimated GFR (Cockcroft-Gault) 59.2 Glucose Level 214 mg/dL (70-99) Calcium Level 8.7 mg/dL (8.5-10.1) Test 12/03/18 09:00 Glucose (Fingerstick) 172 mg/dL (70-99) Laboratory Tests Test 12/02/18 11:46 12/02/18 17:03 12/02/18 19:58 12/03/18 04:11 Glucose (Fingerstick) 271 mg/dL (70-99) 203 mg/dL (70-99) 247 mg/dL (70-99) White Blood Count 9.7 x10^3/uL (4.0-11.0) Red Blood Count 5.31 x10^6/uL (4.30-5.70) Hemoglobin 12.0 g/dL (13.0-17.5) Hematocrit 38.8 % (39.0-53.0) Mean Corpuscular Volume 73 fL (79-100) Mean Corpuscular Hemoglobin 23 pg (25-35) Mean Corpuscular Hemoglobin Concent 31 g/dL (31-37) Red Cell Distribution Width 15.3 % (11.5-14.5) Platelet Count 155 x10^3/uL (140-400) Neutrophils (%) (Auto) 89 % (31-73) Lymphocytes (%) (Auto) 8 % (24-48) Monocytes (%) (Auto) 3 % (0-9) Eosinophils (%) (Auto) 0 % (0-3) Basophils (%) (Auto) 0 % (0-3) Neutrophils # (Auto) 8.6 x10^3uL (1.8-7.7) Lymphocytes # (Auto) 0.8 x10^3/uL (1.0-4.8) Monocytes # (Auto) 0.3 x10^3/uL (0.0-1.1) Eosinophils # (Auto) 0.0 x10^3/uL (0.0-0.7) Basophils # (Auto) 0.0 x10^3/uL (0.0-0.2) Segmented Neutrophils % 89 % (35-66) Band Neutrophils % 3 % (0-9) Lymphocytes % 6 % (24-48) Monocytes % 2 % (0-10) Platelet Estimate Adequate (ADEQUATE) Hypochromasia Slight Anisocytosis Slight Microcytosis Slight Sodium Level 139 mmol/L (136-145) Potassium Level 4.3 mmol/L (3.5-5.1) Chloride Level 105 mmol/L (98-107) Carbon Dioxide Level 23 mmol/L (21-32) Anion Gap 11 (6-14) Blood Urea Nitrogen 22 mg/dL (8-26) Creatinine 1.4 mg/dL (0.7-1.3) Estimated GFR (Cockcroft-Gault) 59.2 Glucose Level 214 mg/dL (70-99) Calcium Level 8.7 mg/dL (8.5-10.1) Test 12/03/18 09:00 Glucose (Fingerstick) 172 mg/dL (70-99) Comments CT CHEST 1. Right middle lobe atelectasis with narrowing of the proximal right middle lobe bronchus. Bronchoscopic evaluation should be considered for further evaluation. 2. 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 Minimal linear scarring and/or atelectasis in the lung bases. Impression . 1. Acute exacerbation of chronic obstructive pulmonary disease, triggered by acute pneumonia, 2. Abnormal chest x-ray with faint opacity in the right lower lobe, likely related to right lower lobe pneumonia. ABNORMAL CT CHEST WITH Right middle lobe atelectasis with narrowing of the proximal right middle lobe bronchus. 3. Moderate protein-calorie malnutrition. 4. Mild renal insufficiency. Plan . 1. wheezing Improved. TAPER steroids. Pulmicort nebulizer along with DuoNebs. 2. Continue antibiotics. 3. Bronch TODAY. SUSPECT MUCOUS PLUG. Pt agrees 4. hold Lovenox for DVT prophylaxis. 5. Discussed with RN. EDNA LEOS MD December 03, 2018 10:47
[2018-12-03] MEDS ORDERED: MIDAZOLAM HCL/PF 2 MG/2 ML VIAL. IV PRN (11:00)
[2018-12-03] MEDS ORDERED: LIDOCAINE 1% PF 2 ML VIAL. ID PRN (11:00)
[2018-12-03] MEDS ORDERED: PROPOFOL 20 ML IV ONE (11:36)
--- NOTE | 2018-12-03 12:12 | OP ---
DATE OF SURGERY: ATTENDING PHYSICIAN: Terra Haley MD. PROCEDURE: Bronchoscopy. INDICATIONS: Abnormal CT chest to rule out any endobronchial lesion versus mucus plug. DESCRIPTION OF PROCEDURE: Informed consent was obtained from the patient and his daughter. All risk and benefits were explained and they both agreed to proceed with the procedure. Propofol was used by anesthesia for sedation. Bronch was introduced to the right nostril. The upper airway was passed. Mucoid secretions seen in the upper airway, which were removed. The trachea was entered. The vocal cords moves equally with respiration. Upon inspection of the distal trachea, there was some mild secretions seen, which were removed. The right lung was examined. Mucoid secretions seen in the bronchus intermedius, in the right upper lobe and in the right middle lobe as well. Saline irrigation done and all secretions were removed. Upon further inspection of the right middle lobe, the lateral subsegment opening showed abnormal mucosa. There was no obvious mass seen. Brushing x 2 was performed from this area. A bronchoalveolar lavage was performed from the right middle lobe as well. All secretions were removed. The left lung was examined. Again seen moderate amount of mucoid secretion in the left upper lobe and lingula. Secretions were removed. Bronchoalveolar lavage performed on the left upper lobe as well. The patient tolerated the procedure well. IMPRESSION: 1. Mucoid secretion seen diffusely in the right upper lobe, right middle lobe, left upper lobe and lingula. Saline irrigation done and all secretions removed. 2. Slightly abnormal mucosa at the lateral subsegment of the right middle lobe. Cannot exclude the possibility of early mucosal neoplasm. However, it could be related to inflammation as well. Cytology brush x 2 was performed from this area and follow the results. 3. The patient may need a relook bronchoscopy in few months. 4. Follow the culture results. EDNA LEOS MD DR: MICHELLE/carlos JOB#: [id number] / [id number]
[2018-12-03 15:00] VITALS: BP 145/93
[2018-12-03] MEDS: FINASTERIDE 5 MG TABLET. PO SCH (18:56)
[2018-12-03] MEDS: amLODIPine BESYLATE 5 MG TABLET PO SCH (18:57)
[2018-12-03 19:00] VITALS: BP 132/76
[2018-12-03] MEDS: TAMSULOSIN 0.4 MG CAP.ER.24H. PO SCH (20:24)
[2018-12-03 23:03] VITALS: BP 124/70
[2018-12-04 04:12] VITALS: BP 143/80
[2018-12-04] MEDS: methylPREDNISolone SOD SUCC PF 125 MG/2 ML VIAL. IV SCH (05:42)
[2018-12-04 07:00] VITALS: BP 131/82
[2018-12-04] MEDS: IPRATRPIUM/ALBUTEROL 0.5/2.5MG 3 ML NEBU. NEB SCH ×4 (07:25→20:43)
[2018-12-04] MEDS: BUDESONIDE 0.5 MG/2 ML NEBU. NEB SCH ×2 (07:26→20:43)
[2018-12-04] MEDS: INSULIN LISPRO 300 UNITS/3 ML INSULN.PEN. SQ SCH ×3 (08:00→17:00)
[2018-12-04] MEDS: amLODIPine BESYLATE 5 MG TABLET PO SCH (08:38)
[2018-12-04] MEDS: FINASTERIDE 5 MG TABLET. PO SCH (08:38)
[2018-12-04] MEDS: LACTOBACILLUS RHAMNOSUS GG 1 CAPSULE. PO SCH ×2 (08:38→21:23)
--- NOTE | 2018-12-04 08:53 | PDOC ---
PULMONARY PROGRESS NOTES Subjective has cough, sob better, no pain Vitals Vital Signs Date Time Temp Pulse Resp B/P (MAP) Pulse Ox O2 Delivery O2 Flow Rate FiO2 12/04/18 08:38 68 143/80 12/04/18 07:27 95 Room Air 12/04/18 04:12 97.8 20 97.8 12/03/18 12:31 2 General: Alert, No acute distress Lungs: Clear Cardiovascular: S1, S2 Abdomen: Soft, Non-tender Neuro Exam: Alert Extremities: No Edema Skin: Warm Labs Laboratory Tests Test 12/02/18 11:46 12/02/18 17:03 12/02/18 19:58 12/03/18 04:11 Glucose (Fingerstick) 271 mg/dL (70-99) 203 mg/dL (70-99) 247 mg/dL (70-99) White Blood Count 9.7 x10^3/uL (4.0-11.0) Red Blood Count 5.31 x10^6/uL (4.30-5.70) Hemoglobin 12.0 g/dL (13.0-17.5) Hematocrit 38.8 % (39.0-53.0) Mean Corpuscular Volume 73 fL (79-100) Mean Corpuscular Hemoglobin 23 pg (25-35) Mean Corpuscular Hemoglobin Concent 31 g/dL (31-37) Red Cell Distribution Width 15.3 % (11.5-14.5) Platelet Count 155 x10^3/uL (140-400) Neutrophils (%) (Auto) 89 % (31-73) Lymphocytes (%) (Auto) 8 % (24-48) Monocytes (%) (Auto) 3 % (0-9) Eosinophils (%) (Auto) 0 % (0-3) Basophils (%) (Auto) 0 % (0-3) Neutrophils # (Auto) 8.6 x10^3uL (1.8-7.7) Lymphocytes # (Auto) 0.8 x10^3/uL (1.0-4.8) Monocytes # (Auto) 0.3 x10^3/uL (0.0-1.1) Eosinophils # (Auto) 0.0 x10^3/uL (0.0-0.7) Basophils # (Auto) 0.0 x10^3/uL (0.0-0.2) Segmented Neutrophils % 89 % (35-66) Band Neutrophils % 3 % (0-9) Lymphocytes % 6 % (24-48) Monocytes % 2 % (0-10) Platelet Estimate Adequate (ADEQUATE) Hypochromasia Slight Anisocytosis Slight Microcytosis Slight Sodium Level 139 mmol/L (136-145) Potassium Level 4.3 mmol/L (3.5-5.1) Chloride Level 105 mmol/L (98-107) Carbon Dioxide Level 23 mmol/L (21-32) Anion Gap 11 (6-14) Blood Urea Nitrogen 22 mg/dL (8-26) Creatinine 1.4 mg/dL (0.7-1.3) Estimated GFR (Cockcroft-Gault) 59.2 Glucose Level 214 mg/dL (70-99) Calcium Level 8.7 mg/dL (8.5-10.1) Test 12/03/18 09:00 12/03/18 17:03 12/03/18 20:11 Glucose (Fingerstick) 172 mg/dL (70-99) 313 mg/dL (70-99) 213 mg/dL (70-99) Laboratory Tests Test 12/03/18 09:00 12/03/18 17:03 12/03/18 20:11 Glucose (Fingerstick) 172 mg/dL (70-99) 313 mg/dL (70-99) 213 mg/dL (70-99) Comments CT CHEST 1. Right middle lobe atelectasis with narrowing of the proximal right middle lobe bronchus. Bronchoscopic evaluation should be considered for further evaluation. 2. 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 Minimal linear scarring and/or atelectasis in the lung bases. Impression . 1. Acute exacerbation of chronic obstructive pulmonary disease, triggered by acute pneumonia, 2. Abnormal chest x-ray with faint opacity in the right lower lobe, likely related to right lower lobe pneumonia. ABNORMAL CT CHEST WITH Right middle lobe atelectasis with narrowing of the proximal right middle lobe bronchus. 3. Moderate protein-calorie malnutrition. 4. Mild renal insufficiency. Plan . 1. wheezing Improved. change solumedrol to 40 bid. cont Pulmicort nebulizer along with DuoNebs. 2. Continue antibiotics. 3. s/p Bronch abnl mucusa, secretion, s/ brushing, need stacy w dr sal[place] in office, the pt need fu bronch per dr sal[place] 4. Lovenox for DVT prophylaxis. 5. Discussed with pt. PADMINI LIANG MD December 04, 2018 08:53
[2018-12-04] MEDS ORDERED: ENOXAPARIN 30 MG/0.3 ML SYRINGE. SQ SCH (09:00)
--- NOTE | 2018-12-04 09:00 | PDOC ---
PROGRESS NOTES Chief Complaint Chief Complaint pneumonia w. sepsis - levaquin q 48 cough dyspnea hazy opacity to upper lobe, consult Pulm, bronch 12/03/18 Moderate protein-calorie malnutrition. Mild renal insufficiency. BPH, check post-void, should follow with uro outpatient, will refer History of Present Illness History of Present Illness Mr. Calderon is a 78 year old M w/ PMHx HTN, DM2, BPH who presents for acute dyspnea with cough and sob. He has not felt well for days, fever, chills, weakness and cough - found with pneumonia on CXR, admitted for further care. He still has a pretty violent cough today, not particularly short of breath. Seen by pulm. CT chest concerning for some possible mucous plugging, bronchoscopy 12/03/18 with significant secretions removed and cytology of right middle lobe performed. Urinary retention still an issue as well. Vitals Vitals Vital Signs Date Time Temp Pulse Resp B/P (MAP) Pulse Ox O2 Delivery O2 Flow Rate FiO2 12/04/18 08:38 68 143/80 12/04/18 07:27 95 Room Air 12/04/18 04:12 97.8 20 97.8 12/03/18 12:31 2 Physical Exam General: Alert, Oriented X3, mild distress Lungs: Clear Abdomen: Normal bowel sounds, Soft Extremities: No cyanosis, Normal pulses Skin: No rashes, No breakdown, No significant lesion Labs LABS Laboratory Tests Test 12/03/18 09:00 12/03/18 17:03 12/03/18 20:11 Glucose (Fingerstick) 172 mg/dL (70-99) 313 mg/dL (70-99) 213 mg/dL (70-99) Assessment and Plan Assessmemt and Plan Problems Medical Problems: (1) Pneumonia Status: Acute Comment Review of Relevant I have reviewed the following items ara (where applicable) has been applied. Labs Laboratory Tests Test 12/02/18 11:46 12/02/18 17:03 12/02/18 19:58 12/03/18 04:11 Glucose (Fingerstick) 271 mg/dL (70-99) 203 mg/dL (70-99) 247 mg/dL (70-99) White Blood Count 9.7 x10^3/uL (4.0-11.0) Red Blood Count 5.31 x10^6/uL (4.30-5.70) Hemoglobin 12.0 g/dL (13.0-17.5) Hematocrit 38.8 % (39.0-53.0) Mean Corpuscular Volume 73 fL (79-100) Mean Corpuscular Hemoglobin 23 pg (25-35) Mean Corpuscular Hemoglobin Concent 31 g/dL (31-37) Red Cell Distribution Width 15.3 % (11.5-14.5) Platelet Count 155 x10^3/uL (140-400) Neutrophils (%) (Auto) 89 % (31-73) Lymphocytes (%) (Auto) 8 % (24-48) Monocytes (%) (Auto) 3 % (0-9) Eosinophils (%) (Auto) 0 % (0-3) Basophils (%) (Auto) 0 % (0-3) Neutrophils # (Auto) 8.6 x10^3uL (1.8-7.7) Lymphocytes # (Auto) 0.8 x10^3/uL (1.0-4.8) Monocytes # (Auto) 0.3 x10^3/uL (0.0-1.1) Eosinophils # (Auto) 0.0 x10^3/uL (0.0-0.7) Basophils # (Auto) 0.0 x10^3/uL (0.0-0.2) Segmented Neutrophils % 89 % (35-66) Band Neutrophils % 3 % (0-9) Lymphocytes % 6 % (24-48) Monocytes % 2 % (0-10) Platelet Estimate Adequate (ADEQUATE) Hypochromasia Slight Anisocytosis Slight Microcytosis Slight Sodium Level 139 mmol/L (136-145) Potassium Level 4.3 mmol/L (3.5-5.1) Chloride Level 105 mmol/L (98-107) Carbon Dioxide Level 23 mmol/L (21-32) Anion Gap 11 (6-14) Blood Urea Nitrogen 22 mg/dL (8-26) Creatinine 1.4 mg/dL (0.7-1.3) Estimated GFR (Cockcroft-Gault) 59.2 Glucose Level 214 mg/dL (70-99) Calcium Level 8.7 mg/dL (8.5-10.1) Test 12/03/18 09:00 12/03/18 17:03 12/03/18 20:11 Glucose (Fingerstick) 172 mg/dL (70-99) 313 mg/dL (70-99) 213 mg/dL (70-99) Laboratory Tests Test 12/03/18 09:00 12/03/18 17:03 12/03/18 20:11 Glucose (Fingerstick) 172 mg/dL (70-99) 313 mg/dL (70-99) 213 mg/dL (70-99) Microbiology 11/30/18 Blood Culture - Preliminary, Resulted NO GROWTH AFTER 3 DAYS 12/03/18 - Final, Complete Medications Current Medications Albuterol/ Ipratropium (Duoneb) 3 ml 1X ONCE NEB Last administered on 11/30/18at 11:10; Start 11/30/18 at 11:00; Stop 11/30/18 at 11:02; Status DC Prednisone (Prednisone) 50 mg 1X ONCE PO Last administered on 11/30/18at 11:00; Start 11/30/18 at 11:00; Stop 11/30/18 at 11:02; Status DC Levofloxacin/ Dextrose 150 ml @ 100 mls/hr 1X ONCE IV Last administered on 11/30/18at 12:34; Start 11/30/18 at 12:15; Stop 11/30/18 at 13:44; Status DC Albuterol/ Ipratropium (Duoneb) 3 ml RTQID NEB Last administered on 12/04/18at 07:25; Start 11/30/18 at 17:00 Budesonide (Pulmicort) 0.5 mg RTBID NEB Last administered on 12/04/18at 07:26; Start 11/30/18 at 20:00 Levofloxacin (Levaquin) 750 mg DAILY06 PO Last administered on 12/01/18at 05:08; Start 12/01/18 at 06:00; Stop 12/01/18 at 13:35; Status DC Nicotine (Nicoderm Cq 14mg) 1 patch PRN DAILY PRN TD SMOKING CESSATION; Start 11/30/18 at 16:45 Nicotine Polacrilex (Nicorette Gum) 1 each PRN Q1HR PRN BC SMOKING CESSATION; Start 11/30/18 at 16:45 Insulin Human Lispro (HumaLOG) 0-7 UNITS TIDWMEALS SQ Last administered on 12/02/18at 17:04; Start 11/30/18 at 17:00 Dextrose (Dextrose 50%-Water Syringe) 12.5 gm PRN Q15MIN PRN IV SEE COMMENTS; Start 11/30/18 at 16:45 Amlodipine Besylate (Norvasc) 2.5 mg DAILY PO Last administered on 12/04/18at 08:38; Start 11/30/18 at 17:30 Enoxaparin Sodium (Lovenox Per Pharmacy Prophylaxis Dosing) 1 each PRN DAILY PRN MC SEE COMMENTS; Start 11/30/18 at 16:45; Stop 12/02/18 at 12:37; Status DC Enoxaparin Sodium (Lovenox 40mg Syringe) 40 mg Q24H SQ Last administered on 12/01/18at 22:26; Start 11/30/18 at 21:00; Stop 12/02/18 at 12:37; Status DC Methylprednisolone Sodium Succinate (SOLU-Medrol 125MG VIAL) 60 mg Q8HRS IV Last administered on 12/04/18at 05:42; Start 12/01/18 at 14:00; Stop 12/04/18 at 08:55; Status DC Levofloxacin (Levaquin) 750 mg Q48H PO Last administered on 12/03/18at 05:47; Start 12/03/18 at 06:00 Lactobacillus Rhamnosus (Culturelle) 1 cap BID PO Last administered on 12/04/18at 08:38; Start 12/01/18 at 21:00 Fentanyl Citrate (Fentanyl 2ml Vial) 25 mcg PRN Q5MIN PRN IV MILD PAIN 1-3; Start 12/03/18 at 07:00; Stop 12/03/18 at 14:52; Status DC Fentanyl Citrate (Fentanyl 2ml Vial) 50 mcg PRN Q5MIN PRN IV MODERATE TO SEVERE PAIN; Start 12/03/18 at 07:00; Stop 12/03/18 at 14:52; Status DC Morphine Sulfate (Morphine Sulfate) 1 mg PRN Q10MIN PRN IV SEVERE PAIN 7-10; Start 12/03/18 at 07:00; Stop 12/03/18 at 14:52; Status DC Ringer's Solution 1,000 ml @ 30 mls/hr Q24H IV Last administered on 12/03/18at 11:00; Start 12/03/18 at 07:00; Stop 12/03/18 at 14:53; Status DC Hydromorphone HCl (Dilaudid) 0.5 mg PRN Q10MIN PRN IV SEV PAIN, Second choice; Start 12/03/18 at 07:00; Stop 12/03/18 at 14:52; Status DC Prochlorperazine Edisylate (Compazine) 5 mg PACU PRN PRN IV NAUSEA, MRX1; Start 12/03/18 at 07:00; Stop 12/03/18 at 14:52; Status DC Finasteride (Proscar) 5 mg DAILY PO Last administered on 12/04/18at 08:38; Star t 12/03/18 at 09:00 Tamsulosin HCl (Flomax) 0.4 mg QHS PO Last administered on 12/03/18at 20:24; Start 12/02/18 at 21:00 Lidocaine HCl (Lidocaine 2% Viscous) 100 ml PRN 1X PRN MM MOUTH PAIN Last administered on 12/03/18at 10:52; Start 12/03/18 at 08:30; Stop 12/04/18 at 08:29; Status DC Lidocaine HCl (Lidocaine 1% 20ml Vial) 20 ml PRN 1X PRN INJ SEE COMMENTS Last administered on 12/03/18at 10:53; Start 12/03/18 at 08:30; Stop 12/04/18 at 08:29; Status DC Epinephrine HCl (Adrenalin) 1 mg PRN 1X PRN INJ SEE COMMENTS; Start 12/03/18 at 08:30; Stop 12/04/18 at 08:29; Status DC Lidocaine HCl 50 ml PRN 1X PRN MM SEE COMMENTS Last administered on 12/03/18at 10:52; Start 12/03/18 at 08:30; Stop 12/04/18 at 08:29; Status DC Epinephrine HCl (Adrenalin) 1 mg STK-MED ONCE .ROUTE ; Start 12/03/18 at 09:17; Stop 12/03/18 at 09:18; Status DC Lidocaine HCl (Lidocaine 1% 20ml Vial) 20 ml STK-MED ONCE .ROUTE ; Start 12/03/18 at 09:17; Stop 12/03/18 at 09:18; Status DC Lidocaine HCl (Lidocaine 2% Viscous) 100 ml STK-MED ONCE .ROUTE ; Start 12/03/18 at 09:17; Stop 12/03/18 at 09:18; Status DC Lidocaine HCl 50 ml STK-MED ONCE .ROUTE ; Start 12/03/18 at 09:18; Stop 12/03/18 at 09:19; Status DC Midazolam HCl (Versed) 2 mg PRN 1X PRN IV PRIOR TO PROCEDURE; Start 12/03/18 at 11:00; Stop 12/03/18 at 14:53; Status DC Fentanyl Citrate (Fentanyl 2ml Vial) 25 mcg PRN Q5MIN PRN IV X 2 DOSES FOR PAIN; Start 12/03/18 at 11:00; Stop 12/03/18 at 14:53; Status DC Fentanyl Citrate (Fentanyl 2ml Vial) 50 mcg PRN Q5MIN PRN IV X 2 DOSES FOR PAIN; Start 12/03/18 at 11:00; Stop 12/03/18 at 14:53; Status DC Ringer's Solution 1,000 ml @ 125 mls/hr Q8H IV ; Start 12/03/18 at 10:48; Stop 12/03/18 at 14:53; Status DC Lidocaine HCl (Xylocaine-Mpf 1% 2ml Vial) 2 ml 1X PRN PRN ID IV START; Start 12/03/18 at 11:00; Stop 12/03/18 at 14:53; Status DC Propofol 20 ml @ As Directed STK-MED ONCE IV ; Start 12/03/18 at 11:36; Stop 12/03/18 at 11:37; Status DC Methylprednisolone Sodium Succinate (SOLU-Medrol 125MG VIAL) 40 mg Q12HR IV ; Start 12/04/18 at 09:00; Status UNV Enoxaparin Sodium (Lovenox 40mg Syringe) 30 mg Q24H SQ ; Start 12/04/18 at 09:00; Status UNV Vitals/I & O Vital Sign - Last 24 Hours 12/03/18 12/03/18 12/03/18 12/03/18 10:54 10:55 11:58 12:15 Temp 97.4 97.4 Pulse 78 82 76 Resp 20 16 16 B/P (MAP) 122/75 134/78 Pulse Ox 99 96 96 O2 Delivery Room Air Room Air Room Air O2 Flow Rate 5 5 12/03/18 12/03/18 12/03/18 12/03/18 12:31 15:00 15:38 18:57 Temp 98.1 98.1 Pulse 72 89 89 Resp 18 18 B/P (MAP) 134/76 145/93 (110) 145/93 Pulse Ox 94 97 O2 Delivery Simple Mask Room Air Room Air O2 Flow Rate 2 12/03/18 12/03/18 12/03/18 12/03/18 19:00 20:00 20:00 23:03 Temp 97.8 97.8 97.8 97.8 Pulse 86 82 Resp 20 20 B/P (MAP) 132/76 (94) 124/70 (88) Pulse Ox 96 98 93 O2 Delivery Room Air Room Air Room Air Room Air 12/04/18 12/04/18 12/04/18 04:12 07:27 08:38 Temp 97.8 97.8 Pulse 68 68 Resp 20 B/P (MAP) 143/80 (101) 143/80 Pulse Ox 96 95 O2 Delivery Room Air Room Air Intake and Output 12/03/18 12/03/18 12/04/18 15:00 23:00 07:00 Intake Total 600 ml Output Total 0 ml Balance 600 ml 0 ml BURKE PIERRE MD December 04, 2018 09:00
[2018-12-04 09:44] LABS: ALBUMIN 2.9 g/dL (3.4-5.0); CREATININE 1.3 mg/dL (0.7-1.3); GFR 64.4; PHOSPHORUS 2.9 mg/dL (2.6-4.7); POTASSIUM 4.3 mmol/L (3.5-5.1)
[2018-12-04 11:00] VITALS: BP 136/88
[2018-12-04 15:00] VITALS: BP 119/73
[2018-12-04] MEDS: ENOXAPARIN 40 MG/0.4 ML SYRINGE. SQ SCH (15:00)
--- NOTE | 2018-12-04 16:01 | NUR ---
Patient Lovenox not given, patient is up ambulating
[2018-12-04 19:00] VITALS: BP 137/79
[2018-12-04] MEDS: methylPREDNISolone SOD SUCC PF 40 MG/ML VIAL. IV SCH (21:23)
[2018-12-04] MEDS: TAMSULOSIN 0.4 MG CAP.ER.24H. PO SCH (21:23)
[2018-12-04 23:00] VITALS: BP 128/60
[2018-12-05 03:00] VITALS: BP 136/83
[2018-12-05] MEDS ORDERED: HYDROcodone/APAP 7.5/325MG 1 TAB TABLET PO PRN (03:00)
[2018-12-05 05:51] LABS: ALBUMIN 2.4 g/dL (3.4-5.0); CALCIUM 8.5 mg/dL (8.5-10.1); CREATININE 1.3 mg/dL (0.7-1.3); GFR 64.4; PHOSPHORUS 3.6 mg/dL (2.6-4.7); POTASSIUM 4.6 mmol/L (3.5-5.1)
[2018-12-05 07:00] VITALS: BP 126/75
--- NOTE | 2018-12-05 08:11 | PDOC ---
PROGRESS NOTES Chief Complaint Chief Complaint pneumonia w. sepsis - levaquin q 48 cough dyspnea hazy opacity to upper lobe, consult Pulm, bronch 12/03/18 (Read as normal faviola - lower respiratory tract does not have normal faviola, however, and this was on a protected bronchoscopy sample) Moderate protein-calorie malnutrition. Mild renal insufficiency. BPH, check post-void, should follow with uro outpatient, will refer History of Present Illness History of Present Illness Mr. Calderon is a 78 year old M w/ PMHx HTN, DM2, BPH who presents for acute dyspnea with cough and sob. He has not felt well for days, fever, chills, weakness and cough - found with pneumonia on CXR, admitted for further care. Seen by pulm. CT chest concerning for some possible mucous plugging, bronchoscopy 12/03/18 with significant secretions removed and cytology of right middle lobe performed. He still has a pretty violent cough today, not particularly short of breath. Urinary retention still an issue as well. Gram stain on bronch shows GPC, likely strep pneumonia, though read as normal faviola, will await cultures and pulm recs. Add cough syrup today Vitals Vitals Vital Signs Date Time Temp Pulse Resp B/P (MAP) Pulse Ox O2 Delivery O2 Flow Rate FiO2 12/05/18 07:00 98.2 60 18 126/75 (92) 94 Room Air 98.2 Physical Exam General: Alert, Oriented X3, mild distress Lungs: Clear Abdomen: Normal bowel sounds, Soft Extremities: No cyanosis, Normal pulses Skin: No rashes, No breakdown, No significant lesion Labs LABS Laboratory Tests Test 12/04/18 09:10 12/04/18 11:11 12/04/18 14:51 12/04/18 17:06 Sodium Level 138 mmol/L (136-145) Potassium Level 4.3 mmol/L (3.5-5.1) Chloride Level 104 mmol/L (98-107) Carbon Dioxide Level 22 mmol/L (21-32) Anion Gap 12 (6-14) Blood Urea Nitrogen 24 mg/dL (8-26) Creatinine 1.3 mg/dL (0.7-1.3) Estimated GFR (Cockcroft-Gault) 64.4 Glucose Level 242 mg/dL (70-99) Calcium Level 9.0 mg/dL (8.5-10.1) Phosphorus Level 2.9 mg/dL (2.6-4.7) Albumin 2.9 g/dL (3.4-5.0) Glucose (Fingerstick) 210 mg/dL (70-99) 198 mg/dL (70-99) 165 mg/dL (70-99) Test 12/04/18 20:19 12/05/18 04:10 12/05/18 07:44 Glucose (Fingerstick) 167 mg/dL (70-99) 161 mg/dL (70-99) Sodium Level 138 mmol/L (136-145) Potassium Level 4.6 mmol/L (3.5-5.1) Chloride Level 104 mmol/L (98-107) Carbon Dioxide Level 23 mmol/L (21-32) Anion Gap 11 (6-14) Blood Urea Nitrogen 25 mg/dL (8-26) Creatinine 1.3 mg/dL (0.7-1.3) Estimated GFR (Cockcroft-Gault) 64.4 Glucose Level 215 mg/dL (70-99) Calcium Level 8.5 mg/dL (8.5-10.1) Phosphorus Level 3.6 mg/dL (2.6-4.7) Albumin 2.4 g/dL (3.4-5.0) Assessment and Plan Assessmemt and Plan Problems Medical Problems: (1) Pneumonia Status: Acute Comment Review of Relevant I have reviewed the following items ara (where applicable) has been applied. Labs Laboratory Tests Test 12/03/18 09:00 12/03/18 17:03 12/03/18 20:11 12/04/18 07:27 Glucose (Fingerstick) 172 mg/dL (70-99) 313 mg/dL (70-99) 213 mg/dL (70-99) 195 mg/dL (70-99) Test 12/04/18 09:10 12/04/18 11:11 12/04/18 14:51 12/04/18 17:06 Sodium Level 138 mmol/L (136-145) Potassium Level 4.3 mmol/L (3.5-5.1) Chloride Level 104 mmol/L (98-107) Carbon Dioxide Level 22 mmol/L (21-32) Anion Gap 12 (6-14) Blood Urea Nitrogen 24 mg/dL (8-26) Creatinine 1.3 mg/dL (0.7-1.3) Estimated GFR (Cockcroft-Gault) 64.4 Glucose Level 242 mg/dL (70-99) Calcium Level 9.0 mg/dL (8.5-10.1) Phosphorus Level 2.9 mg/dL (2.6-4.7) Albumin 2.9 g/dL (3.4-5.0) Glucose (Fingerstick) 210 mg/dL (70-99) 198 mg/dL (70-99) 165 mg/dL (70-99) Test 12/04/18 20:19 12/05/18 04:10 12/05/18 07:44 Glucose (Fingerstick) 167 mg/dL (70-99) 161 mg/dL (70-99) Sodium Level 138 mmol/L (136-145) Potassium Level 4.6 mmol/L (3.5-5.1) Chloride Level 104 mmol/L (98-107) Carbon Dioxide Level 23 mmol/L (21-32) Anion Gap 11 (6-14) Blood Urea Nitrogen 25 mg/dL (8-26) Creatinine 1.3 mg/dL (0.7-1.3) Estimated GFR (Cockcroft-Gault) 64.4 Glucose Level 215 mg/dL (70-99) Calcium Level 8.5 mg/dL (8.5-10.1) Phosphorus Level 3.6 mg/dL (2.6-4.7) Albumin 2.4 g/dL (3.4-5.0) Laboratory Tests Test 12/04/18 09:10 12/04/18 11:11 12/04/18 14:51 12/04/18 17:06 Sodium Level 138 mmol/L (136-145) Potassium Level 4.3 mmol/L (3.5-5.1) Chloride Level 104 mmol/L (98-107) Carbon Dioxide Level 22 mmol/L (21-32) Anion Gap 12 (6-14) Blood Urea Nitrogen 24 mg/dL (8-26) Creatinine 1.3 mg/dL (0.7-1.3) Estimated GFR (Cockcroft-Gault) 64.4 Glucose Level 242 mg/dL (70-99) Calcium Level 9.0 mg/dL (8.5-10.1) Phosphorus Level 2.9 mg/dL (2.6-4.7) Albumin 2.9 g/dL (3.4-5.0) Glucose (Fingerstick) 210 mg/dL (70-99) 198 mg/dL (70-99) 165 mg/dL (70-99) Test 12/04/18 20:19 12/05/18 04:10 12/05/18 07:44 Glucose (Fingerstick) 167 mg/dL (70-99) 161 mg/dL (70-99) Sodium Level 138 mmol/L (136-145) Potassium Level 4.6 mmol/L (3.5-5.1) Chloride Level 104 mmol/L (98-107) Carbon Dioxide Level 23 mmol/L (21-32) Anion Gap 11 (6-14) Blood Urea Nitrogen 25 mg/dL (8-26) Creatinine 1.3 mg/dL (0.7-1.3) Estimated GFR (Cockcroft-Gault) 64.4 Glucose Level 215 mg/dL (70-99) Calcium Level 8.5 mg/dL (8.5-10.1) Phosphorus Level 3.6 mg/dL (2.6-4.7) Albumin 2.4 g/dL (3.4-5.0) Microbiology 11/30/18 Blood Culture - Preliminary, Resulted NO GROWTH AFTER 4 DAYS 12/03/18 - Final, Complete Medications Current Medications Albuterol/ Ipratropium (Duoneb) 3 ml 1X ONCE NEB Last administered on 11/30/18at 11:10; Start 11/30/18 at 11:00; Stop 11/30/18 at 11:02; Status DC Prednisone (Prednisone) 50 mg 1X ONCE PO Last administered on 11/30/18at 11:00; Start 11/30/18 at 11:00; Stop 11/30/18 at 11:02; Status DC Levofloxacin/ Dextrose 150 ml @ 100 mls/hr 1X ONCE IV Last administered on 11/30/18at 12:34; Start 11/30/18 at 12:15; Stop 11/30/18 at 13:44; Status DC Albuterol/ Ipratropium (Duoneb) 3 ml RTQID NEB Last administered on 12/04/18at 20:43; Start 11/30/18 at 17:00 Budesonide (Pulmicort) 0.5 mg RTBID NEB Last administered on 12/04/18at 20:43; Start 11/30/18 at 20:00 Levofloxacin (Levaquin) 750 mg DAILY06 PO Last administered on 12/01/18at 05:08; Start 12/01/18 at 06:00; Stop 12/01/18 at 13:35; Status DC Nicotine (Nicoderm Cq 14mg) 1 patch PRN DAILY PRN TD SMOKING CESSATION; Start 11/30/18 at 16:45 Nicotine Polacrilex (Nicorette Gum) 1 each PRN Q1HR PRN BC SMOKING CESSATION; Start 11/30/18 at 16:45 Insulin Human Lispro (HumaLOG) 0-7 UNITS TIDWMEALS SQ Last administered on 12/04/18at 12:12; Start 11/30/18 at 17:00 Dextrose (Dextrose 50%-Water Syringe) 12.5 gm PRN Q15MIN PRN IV SEE COMMENTS; Start 11/30/18 at 16:45 Amlodipine Besylate (Norvasc) 2.5 mg DAILY PO Last administered on 12/04/18at 08:38; Start 11/30/18 at 17:30 Enoxaparin Sodium (Lovenox Per Pharmacy Prophylaxis Dosing) 1 each PRN DAILY PRN MC SEE COMMENTS; Start 11/30/18 at 16:45; Stop 12/02/18 at 12:37; Status DC Enoxaparin Sodium (Lovenox 40mg Syringe) 40 mg Q24H SQ Last administered on 12/01/18at 22:26; Start 11/30/18 at 21:00; Stop 12/02/18 at 12:37; Status DC Methylprednisolone Sodium Succinate (SOLU-Medrol 125MG VIAL) 60 mg Q8HRS IV Last administered on 12/04/18at 05:42; Start 12/01/18 at 14:00; Stop 12/04/18 at 08:55; Status DC Levofloxacin (Levaquin) 750 mg Q48H PO Last administered on 12/05/18at 05:57; Start 12/03/18 at 06:00 Lactobacillus Rhamnosus (Culturelle) 1 cap BID PO Last administered on 12/04/18at 21:23; Start 12/01/18 at 21:00 Fentanyl Citrate (Fentanyl 2ml Vial) 25 mcg PRN Q5MIN PRN IV MILD PAIN 1-3; Start 12/03/18 at 07:00; Stop 12/03/18 at 14:52; Status DC Fentanyl Citrate (Fentanyl 2ml Vial) 50 mcg PRN Q5MIN PRN IV MODERATE TO SEVERE PAIN; Start 12/03/18 at 07:00; Stop 12/03/18 at 14:52; Status DC Morphine Sulfate (Morphine Sulfate) 1 mg PRN Q10MIN PRN IV SEVERE PAIN 7-10; Start 12/03/18 at 07:00; Stop 12/03/18 at 14:52; Status DC Ringer's Solution 1,000 ml @ 30 mls/hr Q24H IV Last administered on 12/03/18at 11:00; Start 12/03/18 at 07:00; Stop 12/03/18 at 14:53; Status DC Hydromorphone HCl (Dilaudid) 0.5 mg PRN Q10MIN PRN IV SEV PAIN, Second choice; Start 12/03/18 at 07:00; Stop 12/03/18 at 14:52; Status DC Prochlorperazine Edisylate (Compazine) 5 mg PACU PRN PRN IV NAUSEA, MRX1; Start 12/03/18 at 07:00; Stop 12/03/18 at 14:52; Status DC Finasteride (Proscar) 5 mg DAILY PO Last administered on 12/04/18at 08:38; Start 12/03/18 at 09:00 Tamsulosin HCl (Flomax) 0.4 mg QHS PO Last administered on 12/04/18at 21:23; Start 12/02/18 at 21:00 Lidocaine HCl (Lidocaine 2% Viscous) 100 ml PRN 1X PRN MM MOUTH PAIN Last administered on 12/03/18at 10:52; Start 12/03/18 at 08:30; Stop 12/04/18 at 08:29; Status DC Lidocaine HCl (Lidocaine 1% 20ml Vial) 20 ml PRN 1X PRN INJ SEE COMMENTS Last administered on 12/03/18at 10:53; Start 12/03/18 at 08:30; Stop 12/04/18 at 08:29; Status DC Epinephrine HCl (Adrenalin) 1 mg PRN 1X PRN INJ SEE COMMENTS; Start 12/03/18 at 08:30; Stop 12/04/18 at 08:29; Status DC Lidocaine HCl 50 ml PRN 1X PRN MM SEE COMMENTS Last administered on 12/03/18at 10:52; Start 12/03/18 at 08:30; Stop 12/04/18 at 08:29; Status DC Epinephrine HCl (Adrenalin) 1 mg STK-MED ONCE .ROUTE ; Start 12/03/18 at 09:17; Stop 12/03/18 at 09:18; Status DC Lidocaine HCl (Lidocaine 1% 20ml Vial) 20 ml STK-MED ONCE .ROUTE ; Start 12/03/18 at 09:17; Stop 12/03/18 at 09:18; Status DC Lidocaine HCl (Lidocaine 2% Viscous) 100 ml STK-MED ONCE .ROUTE ; Start 12/03/18 at 09:17; Stop 12/03/18 at 09:18; Status DC Lidocaine HCl 50 ml STK-MED ONCE .ROUTE ; Start 12/03/18 at 09:18; Stop 12/03/18 at 09:19; Status DC Midazolam HCl (Versed) 2 mg PRN 1X PRN IV PRIOR TO PROCEDURE; Start 12/03/18 at 11:00; Stop 12/03/18 at 14:53; Status DC Fentanyl Citrate (Fentanyl 2ml Vial) 25 mcg PRN Q5MIN PRN IV X 2 DOSES FOR PAIN; Start 12/03/18 at 11:00; Stop 12/03/18 at 14:53; Status DC Fentanyl Citrate (Fentanyl 2ml Vial) 50 mcg PRN Q5MIN PRN IV X 2 DOSES FOR PAIN; Start 12/03/18 at 11:00; Stop 12/03/18 at 14:53; Status DC Ringer's Solution 1,000 ml @ 125 mls/hr Q8H IV ; Start 12/03/18 at 10:48; Stop 12/03/18 at 14:53; Status DC Lidocaine HCl (Xylocaine-Mpf 1% 2ml Vial) 2 ml 1X PRN PRN ID IV START; Start 12/03/18 at 11:00; Stop 12/03/18 at 14:53; Status DC Propofol 20 ml @ As Directed STK-MED ONCE IV ; Start 12/03/18 at 11:36; Stop 12/03/18 at 11:37; Status DC Methylprednisolone Sodium Succinate (SOLU-Medrol 40MG VIAL) 40 mg Q12HR IV Last administered on 12/04/18at 21:23; Start 12/04/18 at 21:00 Enoxaparin Sodium (Lovenox 30mg Syringe) 30 mg Q24H SQ ; Start 12/04/18 at 09:00; Stop 12/04/18 at 14:28; Status DC Enoxaparin Sodium (Lovenox 40mg Syringe) 40 mg Q24H SQ ; Start 12/04/18 at 15:00 Acetaminophen/ Hydrocodone Bitart (Lortab 7.5/325) 1 tab PRN Q6HRS PRN PO PAIN Last administered on 12/05/18at 02:57; Start 12/05/18 at 03:00 Guaifenesin/ Codeine Phosphate (Robitussin Ac) 5 ml PRN Q6HRS PRN PO COUGH; Start 12/05/18 at 08:15 Vitals/I & O Vital Sign - Last 24 Hours 12/04/18 12/04/18 12/04/18 12/04/18 08:38 11:00 11:24 15:00 Temp 98.2 98.0 98.2 98.0 Pulse 68 69 69 Resp 18 17 B/P (MAP) 143/80 136/88 (104) 119/73 (88) Pulse Ox 97 97 O2 Delivery Room Air Room Air Room Air 12/04/18 12/04/18 12/04/18 12/04/18 15:36 19:00 20:00 20:45 Temp 97.7 97.7 Pulse 66 Resp 18 B/P (MAP) 137/79 (98) Pulse Ox 97 93 97 O2 Delivery Room Air Room Air Room Air Room Air 12/04/18 12/05/18 12/05/18 12/05/18 23:00 02:57 03:00 03:58 Temp 98.2 97.2 98.2 97.2 Pulse 67 71 Resp 18 18 B/P (MAP) 128/60 (82) 136/83 (100) Pulse Ox 97 96 O2 Delivery Room Air Room Air Room Air Room Air 12/05/18 07:00 Temp 98.2 98.2 Pulse 60 Resp 18 B/P (MAP) 126/75 (92) Pulse Ox 94 O2 Delivery Room Air Intake and Output 12/04/18 12/04/18 12/05/18 15:00 23:00 07:00 Intake Total 120 ml 750 ml Balance 120 ml 750 ml BURKE PIERRE MD December 05, 2018 08:11
[2018-12-05] MEDS: LACTOBACILLUS RHAMNOSUS GG 1 CAPSULE. PO SCH ×2 (08:22→21:01)
[2018-12-05] MEDS: FINASTERIDE 5 MG TABLET. PO SCH (08:22)
[2018-12-05] MEDS: amLODIPine BESYLATE 5 MG TABLET PO SCH (08:22)
[2018-12-05] MEDS: methylPREDNISolone SOD SUCC PF 40 MG/ML VIAL. IV SCH ×2 (08:23→21:01)
[2018-12-05] MEDS: guaiFENesin/CODEINE 100mg/10mg 5 ML LIQUID PO PRN ×2 (08:23→21:01)
[2018-12-05] MEDS: INSULIN LISPRO 300 UNITS/3 ML INSULN.PEN. SQ SCH ×3 (08:30→17:15)
[2018-12-05] MEDS: IPRATRPIUM/ALBUTEROL 0.5/2.5MG 3 ML NEBU. NEB SCH ×4 (08:30→19:45)
[2018-12-05] MEDS: BUDESONIDE 0.5 MG/2 ML NEBU. NEB SCH ×2 (08:31→19:45)
--- NOTE | 2018-12-05 08:35 | PDOC ---
PULMONARY PROGRESS NOTES Subjective still has cough, sob better, has nasal congestion, post nasal drip. no pain Vitals Vital Signs Date Time Temp Pulse Resp B/P (MAP) Pulse Ox O2 Delivery O2 Flow Rate FiO2 12/05/18 08:25 98 Room Air 12/05/18 08:22 60 126/75 12/05/18 07:00 98.2 18 98.2 ROS: No Nausea General: Alert, No acute distress Lungs: Wheezing Cardiovascular: S1, S2 Abdomen: Soft, Non-tender Neuro Exam: Alert Extremities: No Edema Skin: Warm Labs Laboratory Tests Test 12/03/18 09:00 12/03/18 17:03 12/03/18 20:11 12/04/18 07:27 Glucose (Fingerstick) 172 mg/dL (70-99) 313 mg/dL (70-99) 213 mg/dL (70-99) 195 mg/dL (70-99) Test 12/04/18 09:10 12/04/18 11:11 12/04/18 14:51 12/04/18 17:06 Sodium Level 138 mmol/L (136-145) Potassium Level 4.3 mmol/L (3.5-5.1) Chloride Level 104 mmol/L (98-107) Carbon Dioxide Level 22 mmol/L (21-32) Anion Gap 12 (6-14) Blood Urea Nitrogen 24 mg/dL (8-26) Creatinine 1.3 mg/dL (0.7-1.3) Estimated GFR (Cockcroft-Gault) 64.4 Glucose Level 242 mg/dL (70-99) Calcium Level 9.0 mg/dL (8.5-10.1) Phosphorus Level 2.9 mg/dL (2.6-4.7) Albumin 2.9 g/dL (3.4-5.0) Glucose (Fingerstick) 210 mg/dL (70-99) 198 mg/dL (70-99) 165 mg/dL (70-99) Test 12/04/18 20:19 12/05/18 04:10 12/05/18 07:44 Glucose (Fingerstick) 167 mg/dL (70-99) 161 mg/dL (70-99) Sodium Level 138 mmol/L (136-145) Potassium Level 4.6 mmol/L (3.5-5.1) Chloride Level 104 mmol/L (98-107) Carbon Dioxide Level 23 mmol/L (21-32) Anion Gap 11 (6-14) Blood Urea Nitrogen 25 mg/dL (8-26) Creatinine 1.3 mg/dL (0.7-1.3) Estimated GFR (Cockcroft-Gault) 64.4 Glucose Level 215 mg/dL (70-99) Calcium Level 8.5 mg/dL (8.5-10.1) Phosphorus Level 3.6 mg/dL (2.6-4.7) Albumin 2.4 g/dL (3.4-5.0) Laboratory Tests Test 12/04/18 09:10 12/04/18 11:11 12/04/18 14:51 12/04/18 17:06 Sodium Level 138 mmol/L (136-145) Potassium Level 4.3 mmol/L (3.5-5.1) Chloride Level 104 mmol/L (98-107) Carbon Dioxide Level 22 mmol/L (21-32) Anion Gap 12 (6-14) Blood Urea Nitrogen 24 mg/dL (8-26) Creatinine 1.3 mg/dL (0.7-1.3) Estimated GFR (Cockcroft-Gault) 64.4 Glucose Level 242 mg/dL (70-99) Calcium Level 9.0 mg/dL (8.5-10.1) Phosphorus Level 2.9 mg/dL (2.6-4.7) Albumin 2.9 g/dL (3.4-5.0) Glucose (Fingerstick) 210 mg/dL (70-99) 198 mg/dL (70-99) 165 mg/dL (70-99) Test 12/04/18 20:19 12/05/18 04:10 12/05/18 07:44 Glucose (Fingerstick) 167 mg/dL (70-99) 161 mg/dL (70-99) Sodium Level 138 mmol/L (136-145) Potassium Level 4.6 mmol/L (3.5-5.1) Chloride Level 104 mmol/L (98-107) Carbon Dioxide Level 23 mmol/L (21-32) Anion Gap 11 (6-14) Blood Urea Nitrogen 25 mg/dL (8-26) Creatinine 1.3 mg/dL (0.7-1.3) Estimated GFR (Cockcroft-Gault) 64.4 Glucose Level 215 mg/dL (70-99) Calcium Level 8.5 mg/dL (8.5-10.1) Phosphorus Level 3.6 mg/dL (2.6-4.7) Albumin 2.4 g/dL (3.4-5.0) Comments CT CHEST 1. Right middle lobe atelectasis with narrowing of the proximal right middle lobe bronchus. Bronchoscopic evaluation should be considered for further evaluation. 2. 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 Minimal linear scarring and/or atelectasis in the lung bases. Impression . 1. Acute exacerbation of chronic obstructive pulmonary disease, triggered by acute pneumonia, 2. Abnormal chest x-ray with faint opacity in the right lower lobe, likely related to right lower lobe pneumonia. ABNORMAL CT CHEST WITH Right middle lobe atelectasis with narrowing of the proximal right middle lobe bronchus. 3. Moderate protein-calorie malnutrition. 4. Mild renal insufficiency. Plan . 1. still has wheezing, cont solumedrol 40 bid, no dose change. cont Pulmicort nebulizer along with DuoNebs. 2. Continue antibiotics. 3. s/p Bronch abnl mucosa, secretion, s/p brushing, need fu w dr sal[place] in office, the pt need fu bronch per dr salinas, cx GPC 4. Lovenox for DVT prophylaxis. 5. add flonase Discussed with pt. PADMINI LIANG MD December 05, 2018 08:35
[2018-12-05] MEDS: FLUTICASONE 50MCG/NASAL SPRAY 16GM BOTTLE. NS SCH (09:00)
[2018-12-05 11:00] VITALS: BP 137/65
[2018-12-05 15:00] VITALS: BP 125/64
[2018-12-05] MEDS: ENOXAPARIN 40 MG/0.4 ML SYRINGE. SQ SCH (15:00)
[2018-12-05 19:00] VITALS: BP 158/86
[2018-12-05] MEDS: TAMSULOSIN 0.4 MG CAP.ER.24H. PO SCH (21:01)
[2018-12-05 23:00] VITALS: BP 137/77
[2018-12-06 03:00] VITALS: BP 147/88
[2018-12-06 07:00] VITALS: BP 149/81
[2018-12-06] MEDS: IPRATRPIUM/ALBUTEROL 0.5/2.5MG 3 ML NEBU. NEB SCH ×4 (07:16→19:51)
[2018-12-06] MEDS: BUDESONIDE 0.5 MG/2 ML NEBU. NEB SCH ×2 (07:16→19:51)
[2018-12-06 08:12] LABS: ALBUMIN 2.4 g/dL (3.4-5.0); CALCIUM 8.2 mg/dL (8.5-10.1); CREATININE 1.1 mg/dL (0.7-1.3); GFR 78.1; POTASSIUM 4.5 mmol/L (3.5-5.1)
[2018-12-06] MEDS: LACTOBACILLUS RHAMNOSUS GG 1 CAPSULE. PO SCH ×2 (08:14→21:28)
[2018-12-06] MEDS: FLUTICASONE 50MCG/NASAL SPRAY 16GM BOTTLE. NS SCH (08:15)
[2018-12-06] MEDS: amLODIPine BESYLATE 5 MG TABLET PO SCH (08:15)
[2018-12-06] MEDS: FINASTERIDE 5 MG TABLET. PO SCH (08:15)
[2018-12-06] MEDS: methylPREDNISolone SOD SUCC PF 40 MG/ML VIAL. IV SCH ×2 (08:16→21:28)
[2018-12-06] MEDS: INSULIN LISPRO 300 UNITS/3 ML INSULN.PEN. SQ SCH ×3 (08:26→17:50)
--- NOTE | 2018-12-06 08:55 | PDOC ---
PULMONARY PROGRESS NOTES Subjective LESS SOA NO CHEST PAIN Vitals Vital Signs Date Time Temp Pulse Resp B/P (MAP) Pulse Ox O2 Delivery O2 Flow Rate FiO2 12/06/18 08:15 69 147/88 12/06/18 07:17 96 Room Air 12/06/18 07:00 98.2 18 98.2 ROS: No Nausea, No Chest Pain, No Abdominal Pain, No Increase Cough General: Alert, No acute distress Lungs: Wheezing Cardiovascular: S1, S2 Abdomen: Soft, Non-tender Neuro Exam: Alert Extremities: No Edema Skin: Warm Labs Laboratory Tests Test 12/04/18 09:10 12/04/18 11:11 12/04/18 14:51 12/04/18 17:06 Sodium Level 138 mmol/L (136-145) Potassium Level 4.3 mmol/L (3.5-5.1) Chloride Level 104 mmol/L (98-107) Carbon Dioxide Level 22 mmol/L (21-32) Anion Gap 12 (6-14) Blood Urea Nitrogen 24 mg/dL (8-26) Creatinine 1.3 mg/dL (0.7-1.3) Estimated GFR (Cockcroft-Gault) 64.4 Glucose Level 242 mg/dL (70-99) Calcium Level 9.0 mg/dL (8.5-10.1) Phosphorus Level 2.9 mg/dL (2.6-4.7) Albumin 2.9 g/dL (3.4-5.0) Glucose (Fingerstick) 210 mg/dL (70-99) 198 mg/dL (70-99) 165 mg/dL (70-99) Test 12/04/18 20:19 12/05/18 04:10 12/05/18 07:44 12/05/18 11:07 Glucose (Fingerstick) 167 mg/dL (70-99) 161 mg/dL (70-99) 180 mg/dL (70-99) Sodium Level 138 mmol/L (136-145) Potassium Level 4.6 mmol/L (3.5-5.1) Chloride Level 104 mmol/L (98-107) Carbon Dioxide Level 23 mmol/L (21-32) Anion Gap 11 (6-14) Blood Urea Nitrogen 25 mg/dL (8-26) Creatinine 1.3 mg/dL (0.7-1.3) Estimated GFR (Cockcroft-Gault) 64.4 Glucose Level 215 mg/dL (70-99) Calcium Level 8.5 mg/dL (8.5-10.1) Phosphorus Level 3.6 mg/dL (2.6-4.7) Albumin 2.4 g/dL (3.4-5.0) Test 12/05/18 16:58 12/05/18 20:43 12/06/18 06:50 Glucose (Fingerstick) 261 mg/dL (70-99) 189 mg/dL (70-99) Sodium Level 138 mmol/L (136-145) Potassium Level 4.5 mmol/L (3.5-5.1) Chloride Level 105 mmol/L (98-107) Carbon Dioxide Level 25 mmol/L (21-32) Anion Gap 8 (6-14) Blood Urea Nitrogen 21 mg/dL (8-26) Creatinine 1.1 mg/dL (0.7-1.3) Estimated GFR (Cockcroft-Gault) 78.1 Glucose Level 171 mg/dL (70-99) Calcium Level 8.2 mg/dL (8.5-10.1) Phosphorus Level 4.0 mg/dL (2.6-4.7) Albumin 2.4 g/dL (3.4-5.0) Laboratory Tests Test 12/05/18 11:07 12/05/18 16:58 12/05/18 20:43 12/06/18 06:50 Glucose (Fingerstick) 180 mg/dL (70-99) 261 mg/dL (70-99) 189 mg/dL (70-99) Sodium Level 138 mmol/L (136-145) Potassium Level 4.5 mmol/L (3.5-5.1) Chloride Level 105 mmol/L (98-107) Carbon Dioxide Level 25 mmol/L (21-32) Anion Gap 8 (6-14) Blood Urea Nitrogen 21 mg/dL (8-26) Creatinine 1.1 mg/dL (0.7-1.3) Estimated GFR (Cockcroft-Gault) 78.1 Glucose Level 171 mg/dL (70-99) Calcium Level 8.2 mg/dL (8.5-10.1) Phosphorus Level 4.0 mg/dL (2.6-4.7) Albumin 2.4 g/dL (3.4-5.0) Comments CT CHEST 1. Right middle lobe atelectasis with narrowing of the proximal right middle lobe bronchus. Bronchoscopic evaluation should be considered for further evaluation. 2. 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 Minimal linear scarring and/or atelectasis in the lung bases. Impression . 1. Acute exacerbation of chronic obstructive pulmonary disease 2. ABNORMAL CT CHEST WITH Right middle lobe atelectasis with narrowing of the proximal right middle lobe bronchus. 3. Moderate protein-calorie malnutrition. 4. Mild renal insufficiency. BRONCH REPORT 1. Mucoid secretion seen diffusely in the right upper lobe, right middle lobe, left upper lobe and lingula. Saline irrigation done and all secretions removed. 2. Slightly abnormal mucosa at the lateral subsegment of the right middle lobe. Cannot exclude the possibility of early mucosal neoplasm. However, it could be related to inflammation as well. Cytology brush x 2 was performed from this area and follow the results. 3. The patient may need a relook bronchoscopy in few months. 4. Follow the culture results. Plan . [place] FOLLOW UP WITH DR LEOS ONCE D/C HE MAY NEED TO REPEAT BRONCH IN FUTURE FOLLOW UP ON CULTURES SO FAR NEGATIVE FOLLOW UP ON CYTOLOGY STEPHY BURNETT MD December 06, 2018 08:55
--- NOTE | 2018-12-06 10:37 | PDOC ---
PROGRESS NOTES Chief Complaint Chief Complaint pneumonia w. sepsis - levaquin q 48 cough dyspnea hazy opacity to upper lobe, consult Pulm, bronch 12/03/18 (Read as normal faviola - lower respiratory tract does not have normal faviola, however, and this was on a protected bronchoscopy sample) Moderate protein-calorie malnutrition. Mild renal insufficiency. BPH, check post-void, should follow with uro outpatient, will refer History of Present Illness History of Present Illness Mr. Calderon is a 78 year old M w/ PMHx HTN, DM2, BPH who presents for acute dyspnea with cough and sob. He has not felt well for days, fever, chills, weakness and cough - found with pneumonia on CXR, admitted for further care. Seen by pulm. CT chest concerning for some possible mucous plugging, bronchoscopy 12/03/18 with significant secretions removed and cytology of right middle lobe performed. coughing better today Gram stain on bronch shows GPC, likely strep pneumonia, though read as normal faviola, will await cultures and pulm recs. Added cough syrup yesterday with improvement. Vitals Vitals Vital Signs Date Time Temp Pulse Resp B/P (MAP) Pulse Ox O2 Delivery O2 Flow Rate FiO2 12/06/18 10:14 Room Air 12/06/18 08:15 69 147/88 12/06/18 07:17 96 12/06/18 07:00 98.2 18 98.2 Physical Exam General: Alert, Oriented X3, mild distress Lungs: Wheezing Abdomen: Normal bowel sounds, Soft Extremities: No cyanosis, Normal pulses Skin: No rashes, No breakdown, No significant lesion Labs LABS Laboratory Tests Test 12/05/18 11:07 12/05/18 16:58 12/05/18 20:43 12/06/18 06:50 Glucose (Fingerstick) 180 mg/dL (70-99) 261 mg/dL (70-99) 189 mg/dL (70-99) Sodium Level 138 mmol/L (136-145) Potassium Level 4.5 mmol/L (3.5-5.1) Chloride Level 105 mmol/L (98-107) Carbon Dioxide Level 25 mmol/L (21-32) Anion Gap 8 (6-14) Blood Urea Nitrogen 21 mg/dL (8-26) Creatinine 1.1 mg/dL (0.7-1.3) Estimated GFR (Cockcroft-Gault) 78.1 Glucose Level 171 mg/dL (70-99) Calcium Level 8.2 mg/dL (8.5-10.1) Phosphorus Level 4.0 mg/dL (2.6-4.7) Albumin 2.4 g/dL (3.4-5.0) Assessment and Plan Assessmemt and Plan Problems Medical Problems: (1) Pneumonia Status: Acute Comment Review of Relevant I have reviewed the following items ara (where applicable) has been applied. Labs Laboratory Tests Test 12/04/18 11:11 12/04/18 14:51 12/04/18 17:06 12/04/18 20:19 Glucose (Fingerstick) 210 mg/dL (70-99) 198 mg/dL (70-99) 165 mg/dL (70-99) 167 mg/dL (70-99) Test 12/05/18 04:10 12/05/18 07:44 12/05/18 11:07 12/05/18 16:58 Sodium Level 138 mmol/L (136-145) Potassium Level 4.6 mmol/L (3.5-5.1) Chloride Level 104 mmol/L (98-107) Carbon Dioxide Level 23 mmol/L (21-32) Anion Gap 11 (6-14) Blood Urea Nitrogen 25 mg/dL (8-26) Creatinine 1.3 mg/dL (0.7-1.3) Estimated GFR (Cockcroft-Gault) 64.4 Glucose Level 215 mg/dL (70-99) Calcium Level 8.5 mg/dL (8.5-10.1) Phosphorus Level 3.6 mg/dL (2.6-4.7) Albumin 2.4 g/dL (3.4-5.0) Glucose (Fingerstick) 161 mg/dL (70-99) 180 mg/dL (70-99) 261 mg/dL (70-99) Test 12/05/18 20:43 12/06/18 06:50 Glucose (Fingerstick) 189 mg/dL (70-99) Sodium Level 138 mmol/L (136-145) Potassium Level 4.5 mmol/L (3.5-5.1) Chloride Level 105 mmol/L (98-107) Carbon Dioxide Level 25 mmol/L (21-32) Anion Gap 8 (6-14) Blood Urea Nitrogen 21 mg/dL (8-26) Creatinine 1.1 mg/dL (0.7-1.3) Estimated GFR (Cockcroft-Gault) 78.1 Glucose Level 171 mg/dL (70-99) Calcium Level 8.2 mg/dL (8.5-10.1) Phosphorus Level 4.0 mg/dL (2.6-4.7) Albumin 2.4 g/dL (3.4-5.0) Laboratory Tests Test 12/05/18 11:07 12/05/18 16:58 12/05/18 20:43 12/06/18 06:50 Glucose (Fingerstick) 180 mg/dL (70-99) 261 mg/dL (70-99) 189 mg/dL (70-99) Sodium Level 138 mmol/L (136-145) Potassium Level 4.5 mmol/L (3.5-5.1) Chloride Level 105 mmol/L (98-107) Carbon Dioxide Level 25 mmol/L (21-32) Anion Gap 8 (6-14) Blood Urea Nitrogen 21 mg/dL (8-26) Creatinine 1.1 mg/dL (0.7-1.3) Estimated GFR (Cockcroft-Gault) 78.1 Glucose Level 171 mg/dL (70-99) Calcium Level 8.2 mg/dL (8.5-10.1) Phosphorus Level 4.0 mg/dL (2.6-4.7) Albumin 2.4 g/dL (3.4-5.0) Microbiology 11/30/18 Blood Culture - Final, Complete NO GROWTH AFTER 5 DAYS 12/03/18 - Final, Complete Medications Current Medications Albuterol/ Ipratropium (Duoneb) 3 ml 1X ONCE NEB Last administered on 11/30/18at 11:10; Start 11/30/18 at 11:00; Stop 11/30/18 at 11:02; Status DC Prednisone (Prednisone) 50 mg 1X ONCE PO Last administered on 11/30/18at 11:00; Start 11/30/18 at 11:00; Stop 11/30/18 at 11:02; Status DC Levofloxacin/ Dextrose 150 ml @ 100 mls/hr 1X ONCE IV Last administered on 11/30/18at 12:34; Start 11/30/18 at 12:15; Stop 11/30/18 at 13:44; Status DC Albuterol/ Ipratropium (Duoneb) 3 ml RTQID NEB Last administered on 12/06/18at 07:16; Start 11/30/18 at 17:00 Budesonide (Pulmicort) 0.5 mg RTBID NEB Last administered on 12/06/18at 07:16; Start 11/30/18 at 20:00 Levofloxacin (Levaquin) 750 mg DAILY06 PO Last administered on 12/01/18at 05:08; Start 12/01/18 at 06:00; Stop 12/01/18 at 13:35; Status DC Nicotine (Nicoderm Cq 14mg) 1 patch PRN DAILY PRN TD SMOKING CESSATION; Start 11/30/18 at 16:45 Nicotine Polacrilex (Nicorette Gum) 1 each PRN Q1HR PRN BC SMOKING CESSATION; Start 11/30/18 at 16:45 Insulin Human Lispro (HumaLOG) 0-7 UNITS TIDWMEALS SQ Last administered on 12/06/18at 08:26; Start 11/30/18 at 17:00 Dextrose (Dextrose 50%-Water Syringe) 12.5 gm PRN Q15MIN PRN IV SEE COMMENTS; Start 11/30/18 at 16:45 Amlodipine Besylate (Norvasc) 2.5 mg DAILY PO Last administered on 12/06/18at 08:15; Start 11/30/18 at 17:30 Enoxaparin Sodium (Lovenox Per Pharmacy Prophylaxis Dosing) 1 each PRN DAILY PRN MC SEE COMMENTS; Start 11/30/18 at 16:45; Stop 12/02/18 at 12:37; Status DC Enoxaparin Sodium (Lovenox 40mg Syringe) 40 mg Q24H SQ Last administered on 12/01/18at 22:26; Start 11/30/18 at 21:00; Stop 12/02/18 at 12:37; Status DC Methylprednisolone Sodium Succinate (SOLU-Medrol 125MG VIAL) 60 mg Q8HRS IV Last administered on 12/04/18at 05:42; Start 12/01/18 at 14:00; Stop 12/04/18 at 08:55; Status DC Levofloxacin (Levaquin) 750 mg Q48H PO Last administered on 12/05/18at 05:57; Start 12/03/18 at 06:00 Lactobacillus Rhamnosus (Culturelle) 1 cap BID PO Last administered on 12/06/18at 08:14; Start 12/01/18 at 21:00 Fentanyl Citrate (Fentanyl 2ml Vial) 25 mcg PRN Q5MIN PRN IV MILD PAIN 1-3; Start 12/03/18 at 07:00; Stop 12/03/18 at 14:52; Status DC Fentanyl Citrate (Fentanyl 2ml Vial) 50 mcg PRN Q5MIN PRN IV MODERATE TO SEVERE PAIN; Start 12/03/18 at 07:00; Stop 12/03/18 at 14:52; Status DC Morphine Sulfate (Morphine Sulfate) 1 mg PRN Q10MIN PRN IV SEVERE PAIN 7-10; Start 12/03/18 at 07:00; Stop 12/03/18 at 14:52; Status DC Ringer's Solution 1,000 ml @ 30 mls/hr Q24H IV Last administered on 12/03/18at 11:00; Start 12/03/18 at 07:00; Stop 12/03/18 at 14:53; Status DC Hydromorphone HCl (Dilaudid) 0.5 mg PRN Q10MIN PRN IV SEV PAIN, Second choice; Start 12/03/18 at 07:00; Stop 12/03/18 at 14:52; Status DC Prochlorperazine Edisylate (Compazine) 5 mg PACU PRN PRN IV NAUSEA, MRX1; Start 12/03/18 at 07:00; Stop 12/03/18 at 14:52; Status DC Finasteride (Proscar) 5 mg DAILY PO Last administered on 12/06/18at 08:15; Start 12/03/18 at 09:00 Tamsulosin HCl (Flomax) 0.4 mg QHS PO Last administered on 12/05/18at 21:01; Start 12/02/18 at 21:00 Lidocaine HCl (Lidocaine 2% Viscous) 100 ml PRN 1X PRN MM MOUTH PAIN Last administered on 12/03/18at 10:52; Start 12/03/18 at 08:30; Stop 12/04/18 at 08:29; Status DC Lidocaine HCl (Lidocaine 1% 20ml Vial) 20 ml PRN 1X PRN INJ SEE COMMENTS Last administered on 12/03/18at 10:53; Start 12/03/18 at 08:30; Stop 12/04/18 at 08:29; Status DC Epinephrine HCl (Adrenalin) 1 mg PRN 1X PRN INJ SEE COMMENTS; Start 12/03/18 at 08:30; Stop 12/04/18 at 08:29; Status DC Lidocaine HCl 50 ml PRN 1X PRN MM SEE COMMENTS Last administered on 12/03/18at 10:52; Start 12/03/18 at 08:30; Stop 12/04/18 at 08:29; Status DC Epinephrine HCl (Adrenalin) 1 mg STK-MED ONCE .ROUTE ; Start 12/03/18 at 09:17; Stop 12/03/18 at 09:18; Status DC Lidocaine HCl (Lidocaine 1% 20ml Vial) 20 ml STK-MED ONCE .ROUTE ; Start 12/03/18 at 09:17; Stop 12/03/18 at 09:18; Status DC Lidocaine HCl (Lidocaine 2% Viscous) 100 ml STK-MED ONCE .ROUTE ; Start 12/03/18 at 09:17; Stop 12/03/18 at 09:18; Status DC Lidocaine HCl 50 ml STK-MED ONCE .ROUTE ; Start 12/03/18 at 09:18; Stop 12/03/18 at 09:19; Status DC Midazolam HCl (Versed) 2 mg PRN 1X PRN IV PRIOR TO PROCEDURE; Start 12/03/18 at 11:00; Stop 12/03/18 at 14:53; Status DC Fentanyl Citrate (Fentanyl 2ml Vial) 25 mcg PRN Q5MIN PRN IV X 2 DOSES FOR PAIN; Start 12/03/18 at 11:00; Stop 12/03/18 at 14:53; Status DC Fentanyl Citrate (Fentanyl 2ml Vial) 50 mcg PRN Q5MIN PRN IV X 2 DOSES FOR PAIN; Start 12/03/18 at 11:00; Stop 12/03/18 at 14:53; Status DC Ringer's Solution 1,000 ml @ 125 mls/hr Q8H IV ; Start 12/03/18 at 10:48; Stop 12/03/18 at 14:53; Status DC Lidocaine HCl (Xylocaine-Mpf 1% 2ml Vial) 2 ml 1X PRN PRN ID IV START; Start 12/03/18 at 11:00; Stop 12/03/18 at 14:53; Status DC Propofol 20 ml @ As Directed STK-MED ONCE IV ; Start 12/03/18 at 11:36; Stop 12/03/18 at 11:37; Status DC Methylprednisolone Sodium Succinate (SOLU-Medrol 40MG VIAL) 40 mg Q12HR IV Last administered on 12/06/18at 08:16; Start 12/04/18 at 21:00 Enoxaparin Sodium (Lovenox 30mg Syringe) 30 mg Q24H SQ ; Start 12/04/18 at 09:00; Stop 12/04/18 at 14:28; Status DC Enoxaparin Sodium (Lovenox 40mg Syringe) 40 mg Q24H SQ ; Start 12/04/18 at 15:00 Acetaminophen/ Hydrocodone Bitart (Lortab 7.5/325) 1 tab PRN Q6HRS PRN PO PAIN Last administered on 12/05/18at 02:57; Start 12/05/18 at 03:00 Guaifenesin/ Codeine Phosphate (Robitussin Ac) 5 ml PRN Q6HRS PRN PO COUGH Last administered on 12/05/18at 21:01; Start 12/05/18 at 08:15 Fluticasone Propionate (Flonase) 2 spray DAILY NS Last administered on at 08:15; Start 12/05/18 at 09:00 Vitals/I & O Vital Sign - Last 24 Hours 12/05/18 12/05/18 12/05/18 12/05/18 11:00 11:56 15:00 15:57 Temp 97.8 97.4 97.8 97.4 Pulse 67 81 Resp 18 18 B/P (MAP) 137/65 (89) 125/64 (84) Pulse Ox 92 96 O2 Delivery Room Air Room Air Room Air Room Air 12/05/18 12/05/18 12/05/18 12/05/18 19:00 19:45 20:00 23:00 Temp 97.6 97.8 97.6 97.8 Pulse 81 71 Resp 18 18 B/P (MAP) 158/86 (110) 137/77 (97) Pulse Ox 96 95 94 O2 Delivery Room Air Room Air Room Air Room Air 12/06/18 12/06/18 12/06/18 12/06/18 03:00 07:00 07:17 08:15 Temp 98.0 98.2 98.0 98.2 Pulse 69 67 69 Resp 18 18 B/P (MAP) 147/88 (107) 149/81 (103) 147/88 Pulse Ox 96 94 96 O2 Delivery Room Air Room Air Room Air 12/06/18 10:14 O2 Delivery Room Air Intake and Output 12/05/18 12/05/18 12/06/18 15:00 23:00 07:00 Intake Total 360 ml 450 ml 500 ml Output Total 200 ml Balance 360 ml 450 ml 300 ml ROBERT BUCHANAN MD December 06, 2018 10:37
[2018-12-06 11:00] VITALS: BP 142/76
[2018-12-06 15:00] VITALS: BP 183/97
[2018-12-06] MEDS: ENOXAPARIN 40 MG/0.4 ML SYRINGE. SQ SCH (16:12)
[2018-12-06 19:00] VITALS: BP 138/72
[2018-12-06] MEDS: TAMSULOSIN 0.4 MG CAP.ER.24H. PO SCH (21:28)
[2018-12-06 23:00] VITALS: BP 123/74
[2018-12-07 03:07] VITALS: BP 135/73
[2018-12-07 07:00] VITALS: BP 135/87
[2018-12-07] MEDS: BUDESONIDE 0.5 MG/2 ML NEBU. NEB SCH (08:05)
[2018-12-07] MEDS: IPRATRPIUM/ALBUTEROL 0.5/2.5MG 3 ML NEBU. NEB SCH ×2 (08:05→12:00)
[2018-12-07] MEDS: FLUTICASONE 50MCG/NASAL SPRAY 16GM BOTTLE. NS SCH (09:00)
--- NOTE | 2018-12-07 09:07 | PDOC ---
PULMONARY PROGRESS NOTES Subjective LESS SOA NO CHEST PAIN LESS COUGH Vitals Vital Signs Date Time Temp Pulse Resp B/P (MAP) Pulse Ox O2 Delivery O2 Flow Rate FiO2 12/07/18 08:07 96 Room Air 12/07/18 07:00 97.7 64 18 135/87 (103) 97.7 ROS: No Nausea, No Chest Pain, No Abdominal Pain, No Increase Cough General: Alert, No acute distress Lungs: Wheezing Cardiovascular: S1, S2 Abdomen: Soft, Non-tender Neuro Exam: Alert Extremities: No Edema Skin: Warm Labs Laboratory Tests Test 12/05/18 11:07 12/05/18 16:58 12/05/18 20:43 12/06/18 06:50 Glucose (Fingerstick) 180 mg/dL (70-99) 261 mg/dL (70-99) 189 mg/dL (70-99) Sodium Level 138 mmol/L (136-145) Potassium Level 4.5 mmol/L (3.5-5.1) Chloride Level 105 mmol/L (98-107) Carbon Dioxide Level 25 mmol/L (21-32) Anion Gap 8 (6-14) Blood Urea Nitrogen 21 mg/dL (8-26) Creatinine 1.1 mg/dL (0.7-1.3) Estimated GFR (Cockcroft-Gault) 78.1 Glucose Level 171 mg/dL (70-99) Calcium Level 8.2 mg/dL (8.5-10.1) Phosphorus Level 4.0 mg/dL (2.6-4.7) Albumin 2.4 g/dL (3.4-5.0) Test 12/06/18 07:40 12/06/18 10:46 12/06/18 17:00 12/06/18 20:25 Glucose (Fingerstick) 151 mg/dL (70-99) 204 mg/dL (70-99) 162 mg/dL (70-99) 210 mg/dL (70-99) Laboratory Tests Test 12/06/18 10:46 12/06/18 17:00 12/06/18 20:25 Glucose (Fingerstick) 204 mg/dL (70-99) 162 mg/dL (70-99) 210 mg/dL (70-99) Comments CT CHEST 1. Right middle lobe atelectasis with narrowing of the proximal right middle lobe bronchus. Bronchoscopic evaluation should be considered for further evaluation. 2. 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 Minimal linear scarring and/or atelectasis in the lung bases. Impression . 1. Acute exacerbation of chronic obstructive pulmonary disease 2. ABNORMAL CT CHEST WITH Right middle lobe atelectasis with narrowing of the proximal right middle lobe bronchus. 3. Moderate protein-calorie malnutrition. 4. Mild renal insufficiency .[facility] Accession Number: [id number] TESTS RESULT FLAG UNITS REF RANGE LAB Clinician Provided Cytology Information No. of containers..01 Other (Miscellaneous) Source: ANASTACIO/RML BAL DIAGNOSIS: 02 ANASTACIO/RML BAL NEGATIVE FOR MALIGNANT CELLS. NORMAL BRONCHIAL CELLS AND MACROPHAGES ARE PRESENT. PULMONARY MACROPHAGES (DUST CELLS) ARE PRESENT. Signed out by: 02 Dannie Montana MD, Pathologist NPI- [id number] Performed by: Susi Escobar, Altitude Chamber Technician ([facility]) Gross description: 01 4ML, COLORLESS, CLOUDY /LCS Clinician Provided Cytology Information No. of containers..01 Slide Source: RML BRUSHINGS DIAGNOSIS: 02 RML BRUSHINGS NEGATIVE FOR MALIGNANT CELLS. NORMAL BRONCHIAL CELLS ARE PRESENT. RED BLOOD CELLS ARE PRESENT. Signed out by: 02 Dannie Montana MD, Pathologist NPI- [id number] Performed by: Susi Escobar Altitude Chamber Technician ([facility]) BRONCH REPORT 1. Mucoid secretion seen diffusely in the right upper lobe, right middle lobe, left upper lobe and lingula. Saline irrigation done and all secretions removed. 2. Slightly abnormal mucosa at the lateral subsegment of the right middle lobe. Cannot exclude the possibility of early mucosal neoplasm. However, it could be related to inflammation as well. Cytology brush x 2 was performed from this area and follow the results. 3. The patient may need a relook bronchoscopy in few months. 4. Follow the culture results. Plan . OK TO D/C FROM MY STANDPOINT FOLLOW UP WITH DR LEOS ONCE D/C HE MAY NEED TO REPEAT BRONCH IN FUTURE FOLLOW UP ON CULTURES SO FAR NEGATIVE FOLLOW UP ON CYTOLOGY NEG SEE REPORT STEPHY BURNETT MD December 07, 2018 09:07
--- NOTE | 2018-12-07 09:47 | PATHOLOGY ---
Note [facility] Accession Number: [id number] TESTS RESULT FLAG UNITS REF RANGE LAB Clinician Provided Cytology Information No. of containers..01 Other (Miscellaneous) Source: ANASTACIO/RML BAL DIAGNOSIS: 02 ANASTACIO/RML BAL NEGATIVE FOR MALIGNANT CELLS. NORMAL BRONCHIAL CELLS AND MACROPHAGES ARE PRESENT. PULMONARY MACROPHAGES (DUST CELLS) ARE PRESENT. Signed out by: 02 Dannie Montana MD, Pathologist NPI- [id number] Performed by: Susi Escobar, Articulation Officer ([facility]) Gross description: 01 4ML, COLORLESS, CLOUDY /LCS FLAG LEGEND: L-Low Normal,H-High Normal,LL-Alert Low,HH-Alert High <-Panic Low,>-Panic High,A-Abnormal,AA-Critical Abnormal Performed at: 01 [facility] [address] [place] [address] Andrey Katz MD, 02 [facility] [address] [place] [address] Shon Lewis MD, Specimen Comment: A courtesy copy of this report has been sent to Specimen Comment: [phone], , . Specimen Comment: Report sent to ,DR LEOS / DR ALEXANDER Specimen Comment: A duplicate report has been generated due to demographic updates. Performed at: 01 [facility] [place] [address], [place], [place] [id number] MD Andrey Katz MD Phone: [phone]
--- NOTE | 2018-12-07 09:47 | PATHOLOGY ---
Note [facility] Accession Number: [id number] TESTS RESULT FLAG UNITS REF RANGE LAB Clinician Provided Cytology Information No. of containers..01 Slide Source: RML BRUSHINGS DIAGNOSIS: RML BRUSHINGS NEGATIVE FOR MALIGNANT CELLS. NORMAL BRONCHIAL CELLS ARE PRESENT. RED BLOOD CELLS ARE PRESENT. Signed out by: 02 Dannie Montana MD, Pathologist NPI- [id number] Performed by: Susi Escobar, [employer] ([facility]) FLAG LEGEND: L-Low Normal,H-High Normal,LL-Alert Low,HH-Alert High <-Panic Low,>-Panic High,A-Abnormal,AA-Critical Abnormal Performed at: [address] [place] [address] Andrey Katz MD, 02 [facility] [address] [place] [address] Shon Lewis MD, Specimen Comment: A courtesy copy of this report has been sent to Specimen Comment: [phone], , . Specimen Comment: Report sent to DR LEOS,DR MANN / DR MEHTA Specimen Comment: A duplicate report has been generated due to demographic updates. Performed at: [address] [place] [address] [address], [place], [place] [id number] MD Andrey Katz MD Phone: [phone]
[2018-12-07] MEDS: FINASTERIDE 5 MG TABLET. PO SCH (10:01)
[2018-12-07] MEDS: amLODIPine BESYLATE 5 MG TABLET PO SCH (10:02)
[2018-12-07] MEDS: LACTOBACILLUS RHAMNOSUS GG 1 CAPSULE. PO SCH (10:02)
[2018-12-07] MEDS: methylPREDNISolone SOD SUCC PF 40 MG/ML VIAL. IV SCH (10:03)
[2018-12-07] MEDS: INSULIN LISPRO 300 UNITS/3 ML INSULN.PEN. SQ SCH ×3 (10:17→17:14)
[2018-12-07 11:00] VITALS: BP 147/74
[2018-12-07] MEDS ORDERED: FLUT1DIS3 IH (11:35)
[2018-12-07] MEDS ORDERED: TIOT18CA IH (11:35)
[2018-12-07] MEDS ORDERED: TAMS0.4C97 PO (11:35)
[2018-12-07] MEDS ORDERED: guaiFENesin/CODEINE 100mg/10mg PO (11:35)
[2018-12-07 11:36] VITALS: BP 147/74
--- NOTE | 2018-12-07 11:38 | DISCH ---
DISCHARGE INSTRUCTIONS Condition on Discharge Condition on Discharge: Stable Activity After Discharge Activity Instructions for Disc: No restrictions Follow-Up Follow up with: derrell in 2 weeks ROBERT BUCHANAN MD December 07, 2018 11:38
--- NOTE | 2018-12-07 13:45 | PDOC3 ---
Discharge Summary Visit Information Date of Admission: December 01, 2018 Date of Discharge: December 07, 2018 Final Diagnosis Problems Medical Problems: (1) Pneumonia Status: Acute Brief Hospital Course Allergies Allergies Coded Allergies Type Severity Reaction Last Updated Verified No Known Drug Allergies 03/10/15 No Vital Signs Vital Signs Date Time Temp Pulse Resp B/P (MAP) Pulse Ox O2 Delivery O2 Flow Rate FiO2 12/07/18 12:01 Room Air 12/07/18 11:36 98.2 65 147/74 (98) 95 2.0 98.2 12/07/18 11:00 18 Lab Results Laboratory Tests Test 12/05/18 16:58 12/05/18 20:43 12/06/18 06:50 12/06/18 07:40 Glucose (Fingerstick) 261 mg/dL (70-99) 189 mg/dL (70-99) 151 mg/dL (70-99) Sodium Level 138 mmol/L (136-145) Potassium Level 4.5 mmol/L (3.5-5.1) Chloride Level 105 mmol/L (98-107) Carbon Dioxide Level 25 mmol/L (21-32) Anion Gap 8 (6-14) Blood Urea Nitrogen 21 mg/dL (8-26) Creatinine 1.1 mg/dL (0.7-1.3) Estimated GFR (Cockcroft-Gault) 78.1 Glucose Level 171 mg/dL (70-99) Calcium Level 8.2 mg/dL (8.5-10.1) Phosphorus Level 4.0 mg/dL (2.6-4.7) Albumin 2.4 g/dL (3.4-5.0) Test 12/06/18 10:46 12/06/18 17:00 12/06/18 20:25 12/07/18 07:36 Glucose (Fingerstick) 204 mg/dL (70-99) 162 mg/dL (70-99) 210 mg/dL (70-99) 159 mg/dL (70-99) Test 12/07/18 11:18 Glucose (Fingerstick) 189 mg/dL (70-99) Laboratory Tests Test 12/06/18 17:00 12/06/18 20:25 12/07/18 07:36 12/07/18 11:18 Glucose (Fingerstick) 162 mg/dL (70-99) 210 mg/dL (70-99) 159 mg/dL (70-99) 189 mg/dL (70-99) Brief Hospital Course 78 year old M w/ PMHx HTN, DM2, BPH who presents for acute dyspnea with cough and sob. He has not felt well for days, fever, chills, weakness and cough - found with pneumonia on CXR, admitted for further care. Seen by pulm. CT chest concerning for some possible mucous plugging, bronchoscopy 12/03/18 with significant secretions removed and cytology of right middle lobe performed. cx negative and cytology pending at time of discharge. patient improved on IV steroids and levaquin. received 6 days of abx and steroids. all cultures negative. patient ambulating in hallway without sob. will defer any further abx or steroids as no wheezing and clinically looks improved. patient has BPH and started on flomax. will continue this. was started on norvasc but will discontinue as BP stable. patient likely has COPD and not on home inhalers. will provide with spiriva and advair. patient will need follow up with pulm clinic in 2-4 weeks. path still pending at time of discharge. Discharge Information Condition at Discharge: Improved Follow Up: Weeks (2 weeks with pulm) Disposition/Orders: D/C to Home Scheduled Fluticasone/Salmeterol (Advair 250-50 Diskus) 1 Each Disk.w.dev, 1 PUFF IH BID for copd for 30 Days, #3 Ref 3 Prescribed by: ROBERT BUCHANAN MD on 12/07/18 1135 Tamsulosin Hcl (Flomax) 0.4 Mg Cap.er.24h, 0.4 MG PO QHS for bph for 30 Days, #30 Prescribed by: ROBERT BUCHANAN MD on 12/07/18 1135 Tiotropium [place] (Spiriva) 18 Mcg Cap.w.dev, 1 CAP IH DAILY for copd for 30 Days, #30 Ref 3 Prescribed by: ROBERT BUCHANAN MD on 12/07/18 1135 Scheduled PRN [guaiFENesin/CODEINE 100mg/10mg] 5 ML LIQUID, 5 ML PO PRN Q6HRS PRN for COUGH for 7 Days, #1 Prescribed by: ROBERT BUCHANAN MD on 12/07/18 1135 ROBERT BUCHANAN MD December 07, 2018 13:45
[2018-12-07 15:00] VITALS: BP 138/80
[2018-12-07] MEDS: ENOXAPARIN 40 MG/0.4 ML SYRINGE. SQ SCH (15:00)
--- NOTE | 2018-12-07 18:15 | NUR ---
Discharge Note: JUN CASE5 [place] Discharge instructions and discharge home medications reviewed with Patient and a copy given. All questions have been answered and understanding verbalized. The following instructions and handouts were given: Pneumonia, Flexible bronchoscopy. Discontinued lines and drains: R AC peripheral IV discontinued, catheter tip intact. Patient discharged to home for self-care, fup Dr. Phan 12/16 @ 1:00pm, Dr. Marcos within 1 week, and [facility] as needed.
== END 2018-12-07 18:15 | disposition home or self-care (01) | DRG 853 ==
LOC: ER 10:44 → 5 NORTH 13:45 → OBSVTOIN 12-01 11:08
PROVIDERS: ADMIT Internal Medicine; ATTEND Internal Medicine
PROC: 0B9G8ZX Drainage of Left Upper Lung Lobe, Via Natural or Artificial Opening Endoscopic, Diagnostic (ICD-10-PCS; 2018-12-03)
PROC: 0B9H8ZZ Drainage of Lung Lingula, Via Natural or Artificial Opening Endoscopic (ICD-10-PCS; 2018-12-03)
PROC: 0B9C8ZZ Drainage of Right Upper Lung Lobe, Via Natural or Artificial Opening Endoscopic (ICD-10-PCS; 2018-12-03)
PROC: 0B9D8ZZ Drainage of Right Middle Lung Lobe, Via Natural or Artificial Opening Endoscopic (ICD-10-PCS; 2018-12-03)
PROC: 0B9G8ZZ Drainage of Left Upper Lung Lobe, Via Natural or Artificial Opening Endoscopic (ICD-10-PCS; 2018-12-03)
PROC: 0B918ZZ Drainage of Trachea, Via Natural or Artificial Opening Endoscopic (ICD-10-PCS; 2018-12-03)
PROC: 0BD58ZX Extraction of Right Middle Lobe Bronchus, Via Natural or Artificial Opening Endoscopic, Diagnostic (ICD-10-PCS; 2018-12-03)
PROC: 0B938ZZ Drainage of Right Main Bronchus, Via Natural or Artificial Opening Endoscopic (ICD-10-PCS; 2018-12-03)
PROC: 3E1F88Z Irrigation of Respiratory Tract using Irrigating Substance, Via Natural or Artificial Opening Endoscopic (ICD-10-PCS; 2018-12-03)
PROC: 0B9D8ZX Drainage of Right Middle Lung Lobe, Via Natural or Artificial Opening Endoscopic, Diagnostic (ICD-10-PCS; principal; 2018-12-03 11:30)
DX: A41.9 Sepsis, unspecified organism (principal); J18.9 Pneumonia, unspecified organism; E44.0 Moderate protein-calorie malnutrition; J44.1 Chronic obstructive pulmonary disease with (acute) exacerbation; J44.0 Chronic obstructive pulmonary disease with (acute) lower respiratory infection; J98.11 Atelectasis; I25.10 Atherosclerotic heart disease of native coronary artery without angina pectoris; F17.210 Nicotine dependence, cigarettes, uncomplicated; I10 Essential (primary) hypertension; E11.9 Type 2 diabetes mellitus without complications; N28.9 Disorder of kidney and ureter, unspecified; N40.1 Benign prostatic hyperplasia with lower urinary tract symptoms; R33.8 Other retention of urine; Z82.49 Family history of ischemic heart disease and other diseases of the circulatory system; Z68.25 Body mass index [BMI] 25.0-25.9, adult
CPT/HCPCS: 31622; 36415; 71045; 71250; 80048; 80053; 80069; 82962; 83036; 83540; 83550; 83605; 83880; 84484; 85007; 85025; 87040; 87070; 87205; 88104; 88112; 94640; 94760; 96365; G0378; G0379; J1650; J1815; J1956; J2704; J2920; J2930; J7120; J7512; J7620; J7626; 99285-25

== ENCOUNTER → 2021-01-24 | Outpatient (CLI) | payer OTHER ==
[~2021-01-24] MED LIST: FLUT1DIS3 IH; TAMS0.4C97 PO; TIOT18CA IH; guaiFENesin/CODEINE 100mg/10mg PO
--- NOTE | 2021-01-25 11:06 | RAD ---
XR LUMBAR SPINE 4+V History: Reason: LUMBAR STENOSIS. / Spl. Instructions: / History: Technique: 5 views of the lumbar spine Comparison: None. Findings: Chronic lower thoracic anterior vertebral body wedging. Normal alignment. No acute fracture. Moderate degenerative disc changes most prominent L4-5 and L5-S1. Multilevel facet arthropathy. Impression: 1. Moderate multilevel lumbar spondylosis. Electronically signed by: David Malik DO (01/25/2021 11:03 AM) [id number]
== END ==
LOC: RAD 10:36
PROVIDERS: ATTEND Family Medicine
DX: M47.816 Spondylosis without myelopathy or radiculopathy, lumbar region (principal); M51.37 Other intervertebral disc degeneration, lumbosacral region; M48.062 Spinal stenosis, lumbar region with neurogenic claudication
CPT/HCPCS: 72110

== ENCOUNTER 2021-12-05 08:21 | Emergency (ER) | payer OTHER ==
[~2021-12-05] VITALS: Ht 177.8 cm; Wt 77.0 kg
--- NOTE | 2021-12-05 09:17 | RAD ---
XR CHEST 1V History: Fall, rib pain Comparison: 08/13/2021, 11/30/2018 Technique: Portable AP radiograph of the chest. Findings: The lungs are mildly hypoinflated prominent interstitial markings attributable to bronchovascular. No focal airspace consolidation, pleural effusion or pneumothorax. The heart size is within normal limi ts. No acute osseous abnormality is identified. Soft tissues are unremarkable. Impression: 1. Hypoinflation with bronchovascular crowding. No acute findings. Electronically signed by: Vern Mcarthur MD (12/05/2021 9:14 AM) [id number]
[2021-12-05] MEDS ORDERED: ACETAMINOPHEN 325 MG TABLET. PO ONE (09:30)
[2021-12-05] MEDS ORDERED: IBUPROFEN 400 MG TABLET. PO ONE (09:30)
[2021-12-05] MEDS ORDERED: IBUP-1007 PO (09:44)
[2021-12-05] MEDS ORDERED: ACET325T9 PO (09:44)
[2021-12-05 09:53] VITALS: BP 142/75
--- NOTE | 2021-12-05 11:05 | PHYS DOC ---
Past Medical History Past Medical History: CAD Past Surgical History: Other Additional Past Surgical Histo: heart cath with no stents Smoking Status: Current Every Day Smoker Alcohol Use: None Drug Use: None General Adult EDM: Chief Complaint: RIB PAIN HPI: HPI: 81-year-old male, past medical history CAD, stroke, ambulatory with walker at baseline, lives alone, presents with mechanical fall yesterday, and complaining of left rib pain. Patient states he only has pain when he takes in a deep breath. No chest pain, palpitations, diaphoresis. No other pain complaints. Picked up by EMS at home, patient states that while he was walking with his walker he dropped his keys, reached for his keys and fell onto his left side. This was witnessed by his neighbors who helped pick him up. Denies head trauma or loss of consciousness. No presyncopal symptoms. Review of Systems: Review of Systems: Constitutional: Denies fever or chills. [] Eyes: Denies change in visual acuity. [] HENT: Denies nasal congestion or sore throat. [] Respiratory: Denies cough or shortness of breath. [] Cardiovascular: Denies chest pain or edema. [] GI: Denies abdominal pain, nausea, vomiting, bloody stools or diarrhea. [] : Denies dysuria. [] Musculoskeletal: Denies back pain or joint pain. +L rib pain Integument: Denies rash. [] Neurologic: Denies headache, focal weakness or sensory changes. [] Endocrine: Denies polyuria or polydipsia. [] Lymphatic: Denies swollen glands. [] Psychiatric: Denies depression or anxiety. [] Heart Score: C/O Chest Pain: No Risk Factors: Risk Factors: DM, Current or recent (<one month) smoker, HTN, HLP, family history of CAD, obesity. Risk Scores: Score 0 - 3: 2.5% MACE over next 6 weeks - Discharge Home Score 4 - 6: 20.3% MACE over next 6 weeks - Admit for Clinical Observation Score 7 - 10: 72.7% MACE over next 6 weeks - Early Invasive Strategies Current Medications: Current Medications Medications (Trade) Dose Ordered Sig/Robert Start Time Stop Time Status Last Admin Dose Admin Acetaminophen (Tylenol) 650 mg 1X ONCE 12/05/21 09:30 12/05/21 09:31 DC 12/05/21 09:31 650 MG Ibuprofen (Motrin) 400 mg 1X ONCE 12/05/21 09:30 12/05/21 09:31 DC 12/05/21 09:31 400 MG Allergies: Allergies: Allergies Coded Allergies Type Severity Reaction Last Updated Verified No Known Drug Allergies 12/05/21 No Physical Exam: PE: Constitutional: hard of hearing, Well developed, well nourished, no acute distress, non-toxic appearance. [] HENT: Normocephalic, atraumatic, bilateral external ears normal, oropharynx moist, no oral exudates, nose normal. [] Eyes: PERRLA, EOMI, conjunctiva normal, no discharge. [] Neck: Normal range of motion, no tenderness, supple, no stridor. [] Cardiovascular:Heart rate regular rhythm, no murmur; No reproducible chest wall tenderness, Lungs & Thorax: Bilateral breath sounds clear to auscultation [] Abdomen: Bowel sounds normal, soft, no tenderness, no masses, no pulsatile masses. [] Skin: Warm, dry, no erythema, no rash. [] Back: No tenderness, no CVA tenderness. [] Extremities: No tenderness, no cyanosis, no clubbing, ROM intact, no edema. [] Neurologic: Alert and oriented X 3, normal motor function, normal sensory function, no focal deficits noted. [] Psychologic: Affect normal, judgement normal, mood normal. [] Current Patient Data: Vital Signs: Vital Signs Date Time Temp Pulse Resp B/P (MAP) Pulse Ox O2 Delivery O2 Flow Rate FiO2 12/05/21 08:21 98.1 82 24 145/82 (103) 98 Room Air 98.1 EKG: EKG: [] Radiology/Procedures: Radiology/Procedures: [] Course & Med Decision Making: Course & Med Decision Making Pertinent Labs and Imaging studies reviewed. (See chart for details) Additional Social History: PMD from non-affiliated facility. Patient Lives at home. Family History: Non-pertinent to today's complaint. Nursing Notes Reviewed Previous Medical Records requested via [facility] Web: Reviewed by me. REASON: fall, rib pain PROCEDURE: PORTABLE CHEST 1V Impression: 1. Hypoinflation with bronchovascular crowding. No acute findings. EMERGENCY DEPARTMENT COURSE/ MEDICAL DECISION MAKING: I examined the patient, evaluated and addressed patient's chief complaint. Patient s/p mechanical fall yesterday complaining of mild L sided pleuritic chest pain. Exam nonfocal. Vitals wnl and well appearing. Very low suspicion for ACS, pneumothorax or acute intraabdominal injury. The patient was treated with ibuprofen, tylenol. Chest xray neg for fracture. On re-assessment, patient feels much better. The patient understands that todays Emergency Department evaluation does not represent a comprehensive medical workup, and it is impossible to diagnose all possible illnesses from a single Emergency Department visit. The patient verbalized understanding that it is absolutely necessary to have follow-up with regular primary care physician within 1-2 days for more detailed workup and continued exam. I explained the findings and plan to the patient, who expressed verbal understanding and agreed with plan for discharge and follow up. The patient was given after care instructions and welcomed to return to the ED for re-evaluation in 8-12 hours, especially for any new or worsening symptoms. Patient's blood pressure was elevated (>120/80) but appears stable without evidence of end organ damage, malignant hypertension, hypertensive emergency or urgency. The patient was counseled about the risks of hypertension and urged to pursue outpatient monitoring and therapy within a week with their primary care physician. The patient was stable at the time of discharge with tylenol/ibuprofen PRN and routine pmd f/u. DIAGNOSTIC IMPRESSION: 1. mechanical fall without injury 2. pleuritic L chest pain DISPOSITION: Disposition: Discharge Home. Condition: Improved Follow-Up: PMD Prescriptions: tylenol, ibuprofen Return to the Emergency Department for new or worsening symptoms. Dragon Disclaimer: Dragon Disclaimer: This electronic medical record was generated, in whole or in part, using a voice recognition dictation system. Departure Departure Impression: Primary Impression: Pleuritic chest pain Additional Impression: Accident due to mechanical fall without injury Disposition: 01 HOME / SELF CARE / HOMELESS Referrals: Librado AZAR MD (PCP) Patient Instructions: Fall Prevention and Home Safety Additional Instructions: Please follow up with your primary care provider. Scripts Ibuprofen (IBUPROFEN) 600 Mg Tablet 600 MG PO PRN Q6HRS PRN for INFLAMMATION, #20 TAB Prov: BABITA SALAZAR MD 12/05/21 Acetaminophen (TYLENOL) 325 Mg Tablet 1 TAB PO PRN Q4HRS for pain, #30 TAB Prov: BABITA SALAZAR MD 12/05/21 BABITA SALAZAR MD December 05, 2021 11:05
== END 2021-12-05 10:30 | disposition home or self-care (01) ==
LOC: ER 08:21
DX: R07.81 Pleurodynia (principal); I25.10 Atherosclerotic heart disease of native coronary artery without angina pectoris; F17.200 Nicotine dependence, unspecified, uncomplicated; Z86.73 Personal history of transient ischemic attack (TIA), and cerebral infarction without residual deficits; W18.39XA Other fall on same level, initial encounter; Y93.89 Activity, other specified; Y92.89 Other specified places as the place of occurrence of the external cause; Y99.8 Other external cause status
CPT/HCPCS: 71045; 99283